=== PATIENT | female | born 1945 | race Caucasian/White ===

== ENCOUNTER 2019-05-18 10:16 | Outpatient (CLI) | payer MEDICARE, SELFPAY ==
[2019-05-18 11:31] LABS: Hematocrit 37.8 % (37.0-47.0); Hemoglobin 12.5 g/dL (11.5-15.3); Mean Corpuscular HGB Conc 33.1 g/dL (30.0-36.0); Mean Corpuscular Hemoglobin 28.6 pg (28.0-34.0); Mean Corpuscular Volume 86.5 fL (81-99); Mean Platelet Volume 10.8 fL (7.4-10.4); Platelet Count 194 10^3/cmm (130-400); Red Blood Count 4.37 10^6/uL (4.1-5.3); Red Cell Distribution Width 13.2 % (12.1-15.1); White Blood Count 7.5 10^3/uL (4.0-10.0)
[2019-05-18 11:50] LABS: Absolute Eosinophils 0.3 10^3/cmm (0.0-0.7); Absolute Segmented Neutrophil 5.1 10/cmm (1.6-7.1); Eosinophils 4 %; Lymphocytes 25 %; Monocytes Absolute 0.2 10^3/cmm (0.1-0.6); Segmented Neutrophils 68 %; Total Cells Counted 100 (0-100)
[2019-05-18 11:51] LABS: Platelet Estimate Normal (Normal)
[2019-05-18 11:52] LABS: Alanine Aminotransferase 46 U/L (0-33); Albumin Level 4.6 g/dL (3.5-5.2); Alkaline Phosphatase 60 IU/L (35-105); Anion Gap 15.8 (5-19); Aspartate Amino Transferase 54 U/L (0-32); Blood Urea Nitrogen 11 mg/dL (8-23); Calcium 9.7 mg/dL (8.5-10.5); Carbon Dioxide 28 mmol/L (22-29); Chloride 99 mmol/L (98-107); Globulin 3.1 g/dL (1.3-4.6); Glucose 123 mg/dL (65-115); Potassium 3.8 mmol/L (3.5-5.1); Sodium 139 mmol/L (136-145); Total Bilirubin 0.3 mg/dL (0.15-1.2); Total Protein 7.7 g/dL (6.6-8.7)
[2019-05-18 12:08] LABS: Erythrocyte Sedimentation Rate 29 mm/hr (0-15)
--- NOTE | 2019-05-19 16:22 | ONC FU_ITS ---
Dr. Pratt Patient Follow-Up Note Patient: Anika Gutierrez Unit #: [id number]: 1945 Dicatated By: Karri Pratt M.D.Date of Visit:May 18, 2019 Onc Med Follow-up/Prog Note Chief Complaint: Breast cancer. History of Present Illness: This is a 74 year-old woman with grade 1 infiltrating ductal carcinoma of the left breast, stage IA (T1b, N0, M0), ER/WI positive and HER-2/vipul nonamplified. She had presented with an abnormal screening mammogram on 11/24/2016, BI-RADS 0. Findings included a nodule in the left medial and slightly inferior anterior third breast. Left diagnostic mammogram and ultrasound on 12/15/2016 was BI-RADS 4A with suspicious appearing solid nodule at the 9:00 position of the left breast. It measured 5 x 6 x 6 mm by ultrasound. Ultrasound directed needle biopsy on 01/18/2017 showed grade 1 infiltrating ductal carcinoma. The breast prognostic profile showed ER positive at 70% and WI positive at 52%. The HER-2/vipul was nonamplified, 1+ by IHC and amplification ratio by FISH of 1.4 with 1.8 HER-2/vipul copies/cell. She underwent left breast lumpectomy with axillary sentinel lymph node biopsy on 02/02/2017. Pathology showed grade 1 infiltrating ductal carcinoma measuring 0.8 x 0.7 cm. There was DCIS within 2 mm of the inferior margin and within 4 mm of the posterior margin. The margins were free of infiltrating carcinoma. There was no involvement in 7 lymph nodes. She then had further evaluation with Oncotype DX. It showed a recurrence score of 32 corresponding to a 10 year risk of distant recurrence of 21% with adjuvant hormonal therapy alone. It was in the high risk range with estimated 30% benefit with addition of adjuvant chemotherapy. With those findings she was given chemotherapy with 4 cycles of cyclophosphamideTaxotere. Her treatment was complicated by neutropenia, requiring growth factor support beginning with cycle 2. She completed the 4th cycle on 05/24/2017. She was then given radiation to the left breast, which she completed on 08/23/2017 to a total dose of 6004 and 40 cGy. Adjuvant hormonal therapy with anastrozole 1 mg daily began in July 2017. Her baseline bone density was normal with T score -0.3 the lumbar spine, 0.7 in the left hip, and -0.9 in the right hip. Her other medical illnesses include hypertension, dyslipidemia, type II diabetes, GERD, degenerative arthritis, and chronic anxiety. She also has a history of superficial bladder cancer for which he has undergone TURBT and intravesical BCG therapy. She has a history of smoking 1 pack of cigarettes daily for 20 years. She quit smoking in 1982. INTERIM HISTORY: As of her follow-up visit in October 2017 she was having significant hot flashes. She otherwise appeared to be tolerating the anastrozole pretty well. I did have her continue treatment, but with addition of megestrol 20 mg twice a day for the hot flashes. However, she did end up stopping the anastrozole just after [place] due to worsening side effects, mainly severe hot flashes and extreme fatigue. She then started further adjuvant hormonal therapy with exemestane 25 mg daily in April 2018. Her surveillance mammogram on 05/12/2018 showed pleomorphic calcifications in the posterior, superior, and possibly lateral aspect of the right breast. These appeared suspicious on additional views. She underwent stereotactic needle biopsy on 07/14/2018. Pathology showed fibro-adenomatoid and fibrocystic changes. The specimen included several microcalcifications and coarse calcifications. There was no significant atypia or malignancy identified. CT scans of the chest, abdomen, and pelvis on 08/01/2018 showed stable findings in the chest with mild changes of pulmonary fibrosis/chronic interstitial lung disease. There was no enlargement of previously described nodules. There was evidence of hepatomegaly and hepatic steatosis. There was no evidence of metastatic disease. She continued adjuvant hormonal therapy with exemestane 25 mg daily. At her follow-up visit on 11/09/2018 she had complained of severe fatigue and increased musculoskeletal pain. She also described having difficulty maneuvering. Given the severity of her symptoms, I had recommended that she stop the exemestane. In December 2018 she began further adjuvant hormonal therapy with tamoxifen 20 mg daily. As of her follow-up visit on 03/20/2019 the tamoxifen was put on hold due to multiple complaints including headache, dysequilibrium, and fatigue, among others. She is seen for a follow-up visit. She is still not feeling good. She does not have good energy, though she is doing light work. ECOG score is 1. She has good appetite. She has not had fever. She complains that her hot flashes have come back, and when she has them she feels zapped. She continues to have headache on a daily basis. It is constant. She also continues to feel off center . A week ago her anxiety medication was changed, and she thinks she may be feeling a little bit better since then. She continues to have pain in her neck and shoulders and in her left knee. She complains of burning on the bottoms of her feet, and she complains that her hands go to sleep at night. Medications: AmLODIPine Besylate 1 Tablet (of 5 mg) Tablet Oral daily, Atorvastatin Calcium 1 Tablet (of 40 mg) Oral daily, B-6 1 (50 mg) Tablet Oral b.i.d., CeleXA 1 Tablet (of 20 mg) Oral daily, Flax Seed Oil 1 Capsule (of 1000 mg) Oral b.i.d., HydroCHLOROthiazide 1 Tablet (of 25 mg) Oral daily, Imodium A-D 1 Tablet (of 2 mg) Oral PRN, Lisinopril 1 (40 mg) Tablet Oral daily, MetFORMIN HCl 1 Tablet (of 850 mg) Oral b.i.d., Metoprolol Tartrate 1 Tablet (of 75 mg) Oral b.i.d., Naproxen 1 Tablet (of 500 mg) Tablet Oral PRN, PriLOSEC OTC 1 (20 mg) Tablet, enteric coated Oral daily, Vitamin B12 1 Tablet Oral daily, Vitamin D 1 (1000 Units) Tablet Oral daily Allergies: Iodine contrast dye and Percocet. Review of Systems: Constitutional - Her energy is not been good. She has limited activity. Her appetite has been okay. She has not had fever. She complains that her hot flashes have come back. She complains that when she has hot flashes they zap me . ECOG score is 1, ENMT - She complains that her nose drips. No mouth sores. No sore throat or difficulty swallowing, Hematologic/Lymphatic - No abnormal bruising or bleeding, Respiratory - No shortness of breath. She has nonproductive cough. No pleuritic pain or hemoptysis, Cardiovascular - No angina pain. No palpitations, Gastrointestinal - She still has a little bit of nausea, but it is getting better. Her acid reflux is managed adequately with Prilosec. No diarrhea or constipation. No blood in the stool or black stools, Genitourinary (F) - She has some difficulty voiding and her bladder aches if she does not drink and of water, Musculoskeletal - She has pain in her neck and shoulders and she has pain in her left knee, Integumentary - No skin complications, Neurologic - She has been having headache just about every day. It is constant. She feels off centered. She has no numbness/tingling, but she does complain that the bottoms of her feet burn. Her hands go to sleep at night, Psychiatric - She has anxiety, and her anxiety medication was recently changed. Vital Signs: Performed on May 18, 2019 10:28 Height - 63.00 in Weight - 194.6 lbs (HIGH) BSA - 1.91 sq.m BMI - 34.47 (HIGH) Temperature - 97.2 F (LOW) Pulse - 69 /min Respiration - 20 /min BP - 127/63 mm(hg) O2 Sat - 96 % Pain - 3 Physical Examination: Constitutional - She looks pretty good generally, Eyes - Sclerae nonicteric. Conjunctivae clear, ENMT - No lesions noted in the oral cavity, Hematologic/Lymphatic - No cervical, clavicular, or axillary adenopathy, Respiratory - Lungs are clear with good air movement bilaterally, Cardiovascular - Heart rhythm is regular. There is a II/ systolic murmur. There is no gallop or rub noted, Abdomen - Soft. Liver and spleen are not enlarged. There is no abdominal mass or ascites noted and there is no inguinal adenopathy, Extremities - Mild lower extremity edema with slight erythema, Neurologic - No focal neurologic deficits noted. Lab/Imaging: Test performed on May 18, 2019 11:15 Sodium 139 mmol/L Potassium 3.8 mmol/L Chloride 99 mmol/L CO2 28 mmol/L Anion Gap 15.8 BUN 11 mg/dL Creatinine 0.5 mg/dL Cr Clearance (Est) 132.8400 mL/min Glucose 123 mg/dL Calcium 9.7 mg/dL Protein, Total 7.7 g/dL Albumin 4.6 g/dL Globulin 3.1 g/dL Bilirubin, Total 0.3 mg/dL ALT (SGPT) 46 U/L AST (SGOT) 54 U/L Alkaline Phosphatase 60 IU/L ESR (Sed Rate) 29 mm/hr Test performed on Mar 07, 2019 12:16 BUN/Creatinine Ratio 28 Absolute Value A/G Ratio 1.7 Absolute Value Hemoglobin A1C 6.7 % WBC 7.7 10^9/L RBC 4.24 10^12/L HGB 12.5 g/dL HCT 37.3 % MCV 88 fl MCH 29.5 pg MCHC 33.5 g/dL RDW 13.1 % Platelet Count 178 10^9/L Neutrophils (Gran) 5.4978 10^9/L Lymphocytes 1.4938 10^9/L Monocytes 0.4697 10^9/L Eosinophils 0.1925 10^9/L Basophils 0.0462 10^9/L Impression: 1. Patient with grade 1 infiltrating ductal carcinoma of the left breast, stage IA (T1b, N0, M0), ER/WI positive and HER-2/vipul nonamplified. 2. She underwent left breast lumpectomy with axillary sentinel lymph node biopsy on 02/02/2017. She was found to be high risk by Oncotype DX with a recurrence score of 32. 3. She has history of superficial bladder cancer for which she has undergone TURBT and intravesical BCG. Her other medical illnesses include: 4. Hypertension. 5. Dyslipidemia. 6. Type II diabetes. 7. GERD. 8. Degenerative arthritis. 9. Chronic anxiety. Based on the high risk Oncotype DX score, I recommended adjuvant chemotherapy with cyclophosphamide/Taxotere. She completed 4 cycles of treatment from 03/22/2017 thru 05/24/2017. The treatment was complicated by moderately severe neutropenia and fatigue. Overall she tolerated it well. She then began radiation to the left breast on 07/06/2017. She completed treatment on 08/23/2017, total dose 6440 cGy. Adjuvant hormonal therapy with anastrozole 1 mg daily began on 07/11/2017. Her baseline bone density was normal with T score -0.3 the lumbar spine, but is 0.7 in the left hip, and -0.9 in the right hip. As of her follow-up visit in October 2017 she was complaining of hot flashes with the anastrozole, but she was otherwise tolerating it well. She continued treatment with addition of low-dose megestrol for the hot flashes. She opted to stop treatment in the latter part of March due to worsening side effects, which included more severe hot flashes, fatigue, and general inability to function. Her symptoms had subsequently improved, and in April 2018 she began further adjuvant hormonal therapy with exemestane 25 mg daily. She continued to have significant hot flashes and she also had some fatigue with the exemestane, but as of her follow-up visit in August 2018 she had been able to tolerate it with acceptable toxicity. However, as of her follow-up visit on 11/09/2018 the exemestane was put on hold due to increasing side effects including severe fatigue, musculoskeletal pain, and difficulty maneuvering. As of her follow-up visit on 12/13/2018 she was feeling better, and she then began further adjuvant hormonal therapy with tamoxifen 20 mg daily. At her follow-up visit on 03/20/2019 she had multiple complaints including fatigue, headache, and dysequilibrium, among others. Her tamoxifen was put on hold. At that time she also had stopped meloxicam. Thus far there really has not been any significant improvement in her clinical status. Plan: The tamoxifen will remain on hold. As a precaution I will now schedule her for a brain MRI. She will have further evaluation as indicated. Signed By: Karri Pratt M.D. <<Signature on File>>
== END 2019-05-18 10:17 | disposition home or self-care (01) ==
PROVIDERS: Family Provider Family Medicine; PCP Family Medicine; Visit Provider Internal Medicine Medical Oncology
DX: C50.312 Malignant neoplasm of lower-inner quadrant of left female breast (principal); R53.83 Other fatigue; R42 Dizziness and giddiness; R51 Headache; I10 Essential (primary) hypertension; E11.9 Type 2 diabetes mellitus without complications; E78.5 Hyperlipidemia, unspecified; K21.9 Gastro-esophageal reflux disease without esophagitis; M19.90 Unspecified osteoarthritis, unspecified site; F41.9 Anxiety disorder, unspecified; Z17.0 Estrogen receptor positive status [ER+]; Z92.21 Personal history of antineoplastic chemotherapy; Z85.51 Personal history of malignant neoplasm of bladder; Z79.84 Long term (current) use of oral hypoglycemic drugs; Z92.3 Personal history of irradiation; Z87.891 Personal history of nicotine dependence; Z92.23 Personal history of estrogen therapy
CPT/HCPCS: 36415; 80053; 85007; 85027; 85651; 99214

== ENCOUNTER 2019-05-21 09:22 | Outpatient (CLI) | payer MEDICARE, SELFPAY ==
--- NOTE | 2019-05-21 09:32 | MR_ITS ---
WS: [id number] MRI BRAIN WITH AND WITHOUT CONTRAST HISTORY: BREAST CANCER/HEADACHE COMPARISON: None available. TECHNIQUE: Multiplanar imaging performed through the brain with Prohance 17 ml's IV. No acute infarcts are seen. Cardoza-white matter differentiation is well preserved. There are a few scat tered T2 and FLAIR signal hyperintensities from chronic ischemic disease. No susceptibility artifacts or prior lacunar infarcts. Ventricles and extra-axial spaces are normal. Clivus and pituitary gland are normal. Visualized posterior fossa and brainstem are also normal. Postcontrast images are negative for masses or vascular malformations. Dural venous sinuses are normal. Paranasal sinuses: Greater than 50% opacification of the RIGHT maxillary sinus. Probably representing a mucous retention cyst. No bony expansion. No air-fluid levels. Mastoid air cells: Normal. Calvarium and scalp: Normal. MR/MR head wo/w con [id number] IMPRESSION: 1. No evidence for metastatic disease to the brain. 2. Minimal chronic microvascular ischemic disease. 3. RIGHT maxillary sinus mucous retention cyst.
== END 2019-05-21 09:23 | disposition home or self-care (01) ==
LOC: RADWPI 09:31
PROVIDERS: Family Provider Family Medicine; PCP Family Medicine; Visit Provider Internal Medicine Medical Oncology
DX: R51 Headache (principal); C50.919 Malignant neoplasm of unspecified site of unspecified female breast; M27.40 Unspecified cyst of jaw
CPT/HCPCS: 70553; A9579

== ENCOUNTER 2019-09-19 09:09 | Outpatient (CLI) | payer MEDICARE, SELFPAY ==
[2019-09-19 10:32] LABS: Basophils % 0.5 %; Eosinophils # 0.2 10^3/uL (0.0-0.8); Eosinophils % 3.2 %; Hematocrit 38.3 % (37.0-47.0); Hemoglobin 12.5 g/dL (11.5-15.3); Lymphocytes # 1.5 10^3/uL (0.8-4.8); Mean Corpuscular HGB Conc 32.6 g/dL (30.0-36.0); Mean Corpuscular Hemoglobin 29.3 pg (28.0-34.0); Mean Corpuscular Volume 89.9 fL (81-99); Mean Platelet Volume 11.4 fL (7.4-10.4); Monocytes # 0.4 10^3/uL (0.2-0.9); Monocytes % 6.8 %; Neutrophils # 4.1 10^3/uL (1.8-7.7); Neutrophils % 65.2 %; Nucleated Red Blood Cells % 0 %; Platelet Count 173 10^3/cmm (130-400); Red Blood Count 4.26 10^6/uL (4.1-5.3); Red Cell Distribution Width 13.3 % (12.1-15.1); White Blood Count 6.3 10^3/uL (4.0-10.0)
[2019-09-19 11:03] LABS: Alanine Aminotransferase 41 U/L (0-33); Albumin Level 4.2 g/dL (3.5-5.2); Alkaline Phosphatase 56 IU/L (35-105); Anion Gap 16.6 (5-19); Aspartate Amino Transferase 44 U/L (0-32); Blood Urea Nitrogen 14 mg/dL (8-23); Calcium 9.8 mg/dL (8.5-10.5); Carbon Dioxide 28 mmol/L (22-29); Chloride 98 mmol/L (98-107); Globulin 3.1 g/dL (1.3-4.6); Glucose 125 mg/dL (65-115); Osmolality Calculated 286 mOsm/kg (285-295); Potassium 3.6 mmol/L (3.5-5.1); Sodium 139 mmol/L (136-145); Thyroid Stimulating Hormone 2.49 uIU/mL (0.27-4.20); Total Bilirubin 0.3 mg/dL (0.15-1.2); Total Protein 7.3 g/dL (6.6-8.7)
[2019-09-19 11:11] LABS: Estmated Average Glucose 146; Hemoglobin A1C 6.7 % (4.0-6.0)
--- NOTE | 2019-09-19 17:12 | ONC FU_ITS ---
Dr. Pratt Patient Follow-Up Note Patient: Anika Gutierrez Unit #: [id number]: 1945 Dicatated By: Karri Pratt M.D.Date of Visit:Sep 19, 2019 Onc Med Follow-up/Prog Note Chief Complaint: Breast cancer. 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 She had presented with an abnormal screening mammogram on 11/24/2016, BI-RADS 0. Findings included a nodule in the left medial and slightly inferior anterior third breast. Left diagnostic mammogram and ultrasound on 12/15/2016 was BI-RADS 4A with suspicious appearing solid nodule at the 9:00 position of the left breast. It measured 5 x 6 x 6 mm by ultrasound. Ultrasound directed needle biopsy on 01/18/2017 showed grade 1 infiltrating ductal carcinoma. The breast prognostic profile showed ER positive at 70% and ME positive at 52%. The HER-2/vipul was nonamplified, 1+ by IHC and amplification ratio by FISH of 1.4 with 1.8 HER-2/vipul copies/cell. She underwent left breast lumpectomy with axillary sentinel lymph node biopsy on 02/02/2017. Pathology showed grade 1 infiltrating ductal carcinoma measuring 0.8 x 0.7 cm. There was DCIS within 2 mm of the inferior margin and within 4 mm of the posterior margin. The margins were free of infiltrating carcinoma. There was no involvement in 7 lymph nodes. She then had further evaluation with Oncotype DX. It showed a recurrence score of 32 corresponding to a 10 year risk of distant recurrence of 21% with adjuvant hormonal therapy alone. It was in the high risk range with estimated 30% benefit with addition of adjuvant chemotherapy. With those findings she was given chemotherapy with 4 cycles of cyclophosphamideTaxotere. Her treatment was complicated by neutropenia, requiring growth factor support beginning with cycle 2. She completed the 4th cycle on 05/24/2017. She was then given radiation to the left breast, which she completed on 08/23/2017 to a total dose of 6004 and 40 cGy. Adjuvant hormonal therapy with anastrozole 1 mg daily began in July 2017. Her baseline bone density was normal with T score -0.3 the lumbar spine, 0.7 in the left hip, and -0.9 in the right hip. Her other medical illnesses include hypertension, dyslipidemia, type II diabetes, GERD, degenerative arthritis, and chronic anxiety. She also has a history of superficial bladder cancer for which he has undergone TURBT and intravesical BCG therapy. She has a history of smoking 1 pack of cigarettes daily for 20 years. She quit smoking in 1982. INTERIM HISTORY: As of her follow-up visit in October 2017 she was having significant hot flashes. She otherwise appeared to be tolerating the anastrozole pretty well. I did have her continue treatment, but with addition of megestrol 20 mg twice a day for the hot flashes. However, she did end up stopping the anastrozole just after [place] due to worsening side effects, mainly severe hot flashes and extreme fatigue. She then started further adjuvant hormonal therapy with exemestane 25 mg daily in April 2018. Her surveillance mammogram on 05/12/2018 showed pleomorphic calcifications in the posterior, superior, and possibly lateral aspect of the right breast. These appeared suspicious on additional views. She underwent stereotactic needle biopsy on 07/14/2018. Pathology showed fibro-adenomatoid and fibrocystic changes. The specimen included several microcalcifications and coarse calcifications. There was no significant atypia or malignancy identified. CT scans of the chest, abdomen, and pelvis on 08/01/2018 showed stable findings in the chest with mild changes of pulmonary fibrosis/chronic interstitial lung disease. There was no enlargement of previously described nodules. There was evidence of hepatomegaly and hepatic steatosis. There was no evidence of metastatic disease. She continued adjuvant hormonal therapy with exemestane 25 mg daily. At her follow-up visit on 11/09/2018 she had complained of severe fatigue and increased musculoskeletal pain. She also described having difficulty maneuvering. Given the severity of her symptoms, I had recommended that she stop the exemestane. In December 2018 she began further adjuvant hormonal therapy with tamoxifen 20 mg daily. As of her follow-up visit on 03/20/2019 the tamoxifen was put on hold due to multiple complaints including headache, dysequilibrium, and fatigue, among others. Further evaluation with brain MRI on 05/21/2019 showed no evidence of metastatic disease. She then restarted tamoxifen, but she continued to have side effects, most significant of which was severe hot flashes. She is seen for a follow-up visit. She tried taking the tamoxifen off and on. She continued to have severe hot flashes with it, and she most recently stopped it again about 3 weeks ago. Since then she has stopped having actual hot flashes, but she continues to complain that sweat rolls off her continuously. Her energy is not good. She is able to do light work. ECOG score is 1. She has good appetite. Her weight is stable. She has not had fever. She continues to complain of shortness of breath. She has cough, but is mostly nonproductive. She does not complain of chest pain. She occasionally has a little nausea. Her acid reflux is adequately managed with Prilosec. Bowel function has been okay. She sometimes has pain with urination and dribbling, but that mainly occurs in the evening when she has not been drinking enough. She has had a recent follow-up with Dr. Winston, and her evaluation was unrevealing. She continues complain of having arthritis all over, but especially in her shoulders and her left knee. She still has some headaches, but they are better now than they had been. She has some numbness/tingling in her feet. Medications: AmLODIPine Besylate 1 Tablet (of 5 mg) Tablet Oral daily, Atorvastatin Calcium 1 Tablet (of 40 mg) Oral daily, B-6 1 (50 mg) Tablet Oral b.i.d., CeleXA 1 Tablet (of 20 mg) Oral daily, Flax Seed Oil 1 Capsule (of 1000 mg) Oral b.i.d., HydroCHLOROthiazide 1 Tablet (of 25 mg) Oral daily, Imodium A-D 1 Tablet (of 2 mg) Oral PRN, Lisinopril 1 (40 mg) Tablet Oral daily, MetFORMIN HCl 1 Tablet (of 850 mg) Oral b.i.d., Metoprolol Tartrate 1 Tablet (of 75 mg) Oral b.i.d., Naproxen 1 Tablet (of 500 mg) Tablet Oral PRN, PriLOSEC OTC 1 (20 mg) Tablet, enteric coated Oral daily, Vitamin B12 1 Tablet Oral daily, Vitamin D 1 (1000 Units) Tablet Oral daily Allergies: Iodine contrast dye and Percocet. Review of Systems: Constitutional - She generally does not feel good. She has no energy. Her appetite is good and weight is stable. No fevers. She is having persistent sweating. No current hot flashes but she was having constant hot flashes with the tamoxifen so she stopped taking it approximately 3 weeks ago. ECOG score is 1, ENMT - She has seasonal allergies. No mouth sores. She has an occasional sore throat. No difficulty swallowing, Hematologic/Lymphatic - No abnormal bruising or bleeding, Respiratory - She feels short of breath. She has an occasional dry cough. No pleuritic pain or hemoptysis, Cardiovascular - No angina pain. No palpitations, Gastrointestinal - No nausea or vomiting. She has acid reflux that is adequately managed with Prilosec. No diarrhea or constipation. No blood in the stool or black stools, Genitourinary (F) - She has had some dysuria and dribbling. It mainly occurs mostly in the evenings if she doesn't drink enough water. She has seen Dr. Winston about it. No hematuria. No urinary frequency. No urgency or incontinence. She has recently has symptoms of vaginal yeast infection, Musculoskeletal - She has arthirtis pain, especially in the shoulders and in the left knee, Integumentary - She has a skin rash under her breasts and in the groin area, Neurologic - She has occasional headaches. She feels dizzy. No numbness or tingling. No other focal neurologic symptoms, Psychiatric - She has some mild anxiety. No depression. No insomnia. Vital Signs: Performed on Sep 19, 2019 09:22 Height - 63.00 in Weight - 194.6 lbs BSA - 1.91 sq.m BMI - 34.47 (HIGH) Temperature - 98.2 F (LOW) Pulse - 63 /min Respiration - 22 /min BP - 134/68 mm(hg) O2 Sat - 96 % Pain - 0 Physical Examination: Constitutional - She looks pretty good generally, Eyes - Sclerae nonicteric. Conjunctivae clear, ENMT - No lesions noted in the oral cavity, Hematologic/Lymphatic - No cervical or clavicular adenopathy, Respiratory - Lungs are clear with good air movement bilaterally, Cardiovascular - Heart rhythm is regular. There is a II/ systolic murmur. There is no gallop or rub noted. There is mild jugular venous distention, Breasts - There is mild induraiton in the left breast. There are no breast masses noted. There is no axillary adenopathy noted, Abdomen - Soft. Liver and spleen are not enlarged. There is no abdominal mass or ascites noted and there is no inguinal adenopathy, Extremities - No edema. Dorsalis pedis pulses are palpable bilaterally, Integumentary - There is some mild intertriginous skin eruption below the breasts and in the groin area bilaterally, Neurologic - No focal neurologic deficits noted. Lab/Imaging: Test performed on Sep 19, 2019 10:15 Sodium 139 mmol/L TSH 2.49 uIU/mL Potassium 3.6 mmol/L Chloride 98 mmol/L CO2 28 mmol/L Anion Gap 16.6 BUN 14 mg/dL Creatinine 0.5 mg/dL Cr Clearance (Est) 132.8400 mL/min Glucose 125 mg/dL Calcium 9.8 mg/dL Protein, Total 7.3 g/dL Albumin 4.2 g/dL Globulin 3.1 g/dL Bilirubin, Total 0.3 mg/dL ALT (SGPT) 41 U/L AST (SGOT) 44 U/L Alkaline Phosphatase 56 IU/L Hemoglobin A1C % 6.7 % WBC 6.3 10 3/uL RBC 4.26 10 6/uL HGB 12.5 g/dL HCT 38.3 % MCV 89.9 fL MCH 29.3 pg MCHC 32.6 g/dL RDW 13.3 % Platelet Count 173 10 3/cmm MPV 11.4 fL Neutrophils 4.1 10 3/uL Lymphocytes 1.5 10 3/uL Monocytes 0.4 10 3/uL Eosinophils 0.2 10 3/uL Basophils 0.0 10 3/uL Neutrophil % 65.2 % Lymphocyte % 24.0 % Monocyte % 6.8 % Eosinophil % 3.2 % Basophils % 0.5 % NRBC % 0 % Impression: 1. Patient with grade 1 infiltrating ductal carcinoma of the left breast, stage IA (T1b, N0, M0), ER/ME positive and HER-2/vipul nonamplified. 2. She underwent left breast lumpectomy with axillary sentinel lymph node biopsy on 02/02/2017. She was found to be high risk by Oncotype DX with a recurrence score of 32. 3. She has history of superficial bladder cancer for which she has undergone TURBT and intravesical BCG. Her other medical illnesses include: 4. Hypertension. 5. Dyslipidemia. 6. Type II diabetes. 7. GERD. 8. Degenerative arthritis. 9. Chronic anxiety. Based on the high risk Oncotype DX score, I recommended adjuvant chemotherapy with cyclophosphamide/Taxotere. She completed 4 cycles of treatment from 03/22/2017 thru 05/24/2017. The treatment was complicated by moderately severe neutropenia and fatigue. Overall she tolerated it well. She then began radiation to the left breast on 07/06/2017. She completed treatment on 08/23/2017, total dose 6440 cGy. Adjuvant hormonal therapy with anastrozole 1 mg daily began on 07/11/2017. Her baseline bone density was normal with T score -0.3 the lumbar spine, but is 0.7 in the left hip, and -0.9 in the right hip. As of her follow-up visit in October 2017 she was complaining of hot flashes with the anastrozole, but she was otherwise tolerating it well. She continued treatment with addition of low-dose megestrol for the hot flashes. She opted to stop treatment in the latter part of March due to worsening side effects, which included more severe hot flashes, fatigue, and general inability to function. Her symptoms had subsequently improved, and in April 2018 she began further adjuvant hormonal therapy with exemestane 25 mg daily. She continued to have significant hot flashes and she also had some fatigue with the exemestane, but as of her follow-up visit in August 2018 she had been able to tolerate it with acceptable toxicity. However, as of her follow-up visit on 11/09/2018 the exemestane was put on hold due to increasing side effects including severe fatigue, musculoskeletal pain, and difficulty maneuvering. As of her follow-up visit on 12/13/2018 she was feeling better, and she then began further adjuvant hormonal therapy with tamoxifen 20 mg daily. At her follow-up visit on 03/20/2019 she had multiple complaints including fatigue, headache, and dysequilibrium, among others. Her tamoxifen was put on hold. At that time she also had stopped meloxicam. She had subsequently tried restarting the tamoxifen, but she continued to have multiple side effects, and the most significant of which was severe hot flashes. She has had ongoing complaints of fatigue and shortness of breath since completing adjuvant chemotherapy, and she has had very poor tolerance for multiple adjuvant hormonal therapies, including anastrozole, exemestane, and tamoxifen. There has been no evidence, though, of recurrence of the breast cancer. Plan: She will continue on observation/expectant management for the breast cancer. She will be given fluconazole for yeast infection, and I also gave her prescription for nystatin powder. She will be scheduled for her surveillance mammograms, which are overdue. I will see her again in 6 months, or sooner as needed. Signed By: Karri Pratt M.D. <<Signature on File>>
== END 2019-09-19 09:10 | disposition home or self-care (01) ==
PROVIDERS: PCP Family Medicine; Visit Provider Internal Medicine Medical Oncology
DX: Z08 Encounter for follow-up examination after completed treatment for malignant neoplasm (principal); Z85.3 Personal history of malignant neoplasm of breast; B37.9 Candidiasis, unspecified; Z92.23 Personal history of estrogen therapy; Z92.21 Personal history of antineoplastic chemotherapy; I10 Essential (primary) hypertension; E78.5 Hyperlipidemia, unspecified; E11.9 Type 2 diabetes mellitus without complications; K21.9 Gastro-esophageal reflux disease without esophagitis; M19.90 Unspecified osteoarthritis, unspecified site; F41.9 Anxiety disorder, unspecified; Z79.84 Long term (current) use of oral hypoglycemic drugs
CPT/HCPCS: 80053; 83036; 84443; 85025; 99214

== ENCOUNTER 2019-09-21 10:40 | Outpatient (CLI) | payer MEDICARE, SELFPAY ==
--- NOTE | 2019-09-21 11:07 | CT_ITS ---
WS: [id number] CT CHEST TECHNIQUE: Noncontrast CT of the chest with coronal and sagittal reformatted images. CLINICAL INFORMATION: BREAST CANCER, PULMONARY NODULES COMPARISON: CT chest August 01, 2018 DLP: 842.[address] scans at [facility] use at least one of these dose optimization techniques: automat ed exposure control; mA and/or kV adjustment per patient size (includes targeted exams where dose is matched to clinical indication); or iterative reconstruction. FINDINGS: Again seen are multiple subcentimeter noncalcified pulmonary nodules which are unchanged from previou s. No new suspicious pulmonary opacities. A few bilateral subpleural pulmonary nodules. Fibrotic appe aring opacity in the right lower lobe anteriorly along the diaphragm more prominent today measuring 6 mm. Stable interstitial thickening left upper lobe is unchanged. No new infiltrates. No pleural fluid. Mi ld chronic emphysematous changes. No mediastinal or hilar lymphadenopathy. Small esophageal hiatal hernia. Moderate thoracic kyphosis. Aortic and coronary calcification. Diffuse fatty infiltration the liver. A few small stable hepatic c ysts. Adrenal glands are normal. Prior cholecystectomy. CT/CT chest wo con [id number] IMPRESSION: 1. Stable mild chronic emphysematous change. Stable interstitial thickening in the left upper lobe. 2. Multiple noncalcified subcentimeter pulmonary nodules are unchanged. 3. Fibrotic appearing opacity in the right lower lobe anteriorly along the giselle phragm more prominent today measuring 6 mm. Recommend 6 month follow-up. 4. Diffuse fatty infiltration of the liver. A few stable hepatic cysts. 5. No mediastinal or hilar lymphadenopathy.
== END 2019-09-21 10:41 | disposition home or self-care (01) ==
LOC: RADWPI 10:43
PROVIDERS: PCP Family Medicine; Visit Provider Internal Medicine Medical Oncology
DX: C50.919 Malignant neoplasm of unspecified site of unspecified female breast (principal); R91.8 Other nonspecific abnormal finding of lung field; K76.0 Fatty (change of) liver, not elsewhere classified; K76.89 Other specified diseases of liver
CPT/HCPCS: 71250

== ENCOUNTER 2019-10-09 09:06 | Outpatient (CLI) | payer MEDICARE, SELFPAY ==
--- NOTE | 2019-10-09 09:11 | MM_ITS ---
WS: [id number] DIAGNOSTIC BILATERAL DIGITAL MAMMOGRAM WITH CAD HISTORY: HX OF BREAST CA COMPARISON: 07/14/2018, 05/22/2018, 05/12/2018 and 12/15/2016 TECHNIQUE: Bilateral craniocaudad, mediolateral oblique, and mediolateral views are submitted. Spot c ompression RIGHT CC and MLO. Computer aided detection utilized. Breast composition: The breasts are heterogeneously dense, which may obscure small masses. Postsurgic al scar and thickening noted in the anterior LEFT breast. Benign calcifications in the LEFT breast. N umerous calcifications in the RIGHT breast. There is a biopsy clip in the upper outer quadrant with s ome residual calcifications but no progression. Benign biopsy. MM/[place] [id number] IMPRESSION: BI-RADS: 2-Benign FOLLOW UP: 1 Year Follow-up
== END 2019-10-09 09:07 | disposition home or self-care (01) ==
LOC: RADSHAW 09:10
PROVIDERS: PCP Family Medicine; Visit Provider Internal Medicine Medical Oncology
DX: Z85.3 Personal history of malignant neoplasm of breast (principal)
CPT/HCPCS: 77066

== ENCOUNTER 2020-02-06 12:24 | Emergency (ER) | payer MEDICARE, SELFPAY ==
[2020-02-06 12:29] VITALS: BP 144/72; PULSE 68; RESP 18; TEMP 36.1; O2SAT 95; BMI 32.8
[2020-02-06 12:45] VITALS: BP 111/83; PULSE 68; RESP 18; O2SAT 95
--- NOTE | 2020-02-06 12:51 | CT_ITS ---
WS: [id number] CT HEAD NONCONTRAST HISTORY: fall, head CT TECHNIQUE: Contiguous axial imaging performed through the brain in 2.5 mm imaging. Bone and soft tiss ue windows. Sagittal and coronal reformats reviewed. All CT scans at [facility] use at ast one of these dose optimization techniques: automated exposure control; mA and/or kV adjustment pe r patient size (includes targeted exams where dose is matched to clinical indication); or iterative r econstruction. DLP: 747.43 mGy.cm COMPARISON: 05/21/2019 No acute intracranial hemorrhage, midline shift or mass effect. Mild atrophy and mild chronic microvascular ischemic disease. No prior infarct. Ventricles: Normal size with no hydrocephalus. Paranasal sinuses: As visualized are clear. Mastoid air cells: Well pneumatized. Calvarium and scalp: Hyperostosis frontalis interna. No skull fracture is identified. There is a mode rate amount of scalp edema and hematoma centered over the LEFT frontal region. CT/CT head wo con* [id number] IMPRESSION: 1. No acute intracranial hemorrhage or edema. 2. Moderate-sized LEFT frontal scalp hematoma. 3. No fracture.
--- NOTE | 2020-02-06 12:51 | W.ED.FALL ---
HPI - Fall General: Chief Complaint: Fall Stated Complaint: Fall Time Seen by Provider: 02/06/20 12:38 Source: patient and family (son) Mode of arrival: ambulatory Limitations: no limitations History of Present Illness: HPI Narrative: Patient was coming to the hospital to see her who just had surgery, and when she got out of the car she lost balance and fell landing on her head. She denies loss of consciousness before or after the fall. She denies chest pain, dizziness, headache, shortness of breath. She is setting that she did not lose consciousness but is uncertain how she fell. Her son drove her and he said when she got out of the car she leaned forward and just kept going until she hit her head on the pavement. She is not on anticoagulation but takes aspirin daily. She has bad knees and says if she steps on her left lower extremity first it does not hold her weight. complaint: fall Onset (ago): minute(s) Fall from: other (getting out the car) Fall witnessed: yes, by family Place fall occurred: street Loss of consciousness: None Prolonged down time: no Symptoms prior to fall: none Location of injury: head Associated symptoms-after fall: Denies abdominal pain, headache(s) or neck pain Review of Systems General: Reports: 10 or more systems reviewed and unremarkable except in HPI and below Const: Denies: fever(s), chills or body aches Eyes: Denies: change in vision or blurry vision ENMT: Denies: throat pain, enlarged tonsils, odynophagia, hoarseness, mouth pain or swelling of lips/tongue Card: Denies: palpitations, irregular heart rhythm, edema or swelling of feet/ankles Resp: Denies: dyspnea, productive cough or non-productive cough GI: Denies: abdominal pain, nausea or vomiting : Denies: flank pain, difficulty voiding, dysuria, urinary frequency, urinary urgency or urinary hesitancy Musc: Denies: neck pain, back pain or extremity swelling Skin/Breast: Denies: rash, pruritus or erythema Neuro: Denies: headache(s), numbness in extremities or weakness in extremities Endo: Denies: polyuria, polydipsia or tired all the time Physical Exam Const: COMMON NORMALS: no acute distress, average body habitus, patient oriented x3, no limitations, healthy appearing, alert and well nourished HENMT: COMMON NORMALS: normocephalic and moist oral mucous membranes HEAD & SCALP: normocephalic and abrasion (left forehead, with a 2cm swelling. Also has abrasions on her nose) Eye: COMMON NORMALS: Equal, round and reactive pupils present, EOMs intact bilaterally, conjunctivae normal and no scleral icterus CONJUNCTIVA: Yes conjunctivae normal PUPIL: Yes Equal, round and reactive pupils present Neck/C-Spine: COMMON NORMALS: full ROM, supple, no meningeal signs, no JVD and No carotid bruits Chest: COMMONS NORMALS: normal inspection of the chest and normal palpation of entire chest wall Resp: COMMON NORMALS: normal respiratory effort, No retractions, No use of accessory muscles, clear to auscultation bilaterally and percussion normal AUSCULTATION: clear to auscultation bilaterally PERCUSSION: percussion normal Cardio: COMMON NORMALS: no JVD, regular rate, regular rhythm, S1 normal heart sound present, S2 normal heart sound present, No gallops present (Cardio), No clicks present (Cardio), No murmurs present (Cardio), No rub (Cardio) and Peripheral pulses 2+ throughout RATE: regular rate RHYTHM: regular rhythm HEART SOUNDS: S1 normal heart sound present and S2 normal heart sound present PERIPHERAL PULSES: Peripheral pulses 2+ throughout GI: COMMON NORMALS: Normal to inspection, nondistended, normoactive bowel sounds present, Soft to palpation, non-tender, No hepatosplenomegaly present, no masses and no bruits PALPATION: Yes Soft to palpation and Yes No hepatosplenomegaly present Extremity: COMMON NORMALS: normal to inspection, full ROM, capillary refill normal, no calf tenderness and no pedal edema Neuro: COMMON NORMALS: patient oriented x3 SENSORIUM/ORIENTATION: Yes alert MENINGEAL SIGNS: Yes no meningeal signs Skin: COMMON NORMALS: no rashes or lesions noted, no wounds, turgor normal, no jaundice, no petechiae and no mottling GENERAL SKIN EXAM: no rashes or lesions noted and turgor normal Course Reevaluation(s): Reevaluation #1: Discussed her imaging findings with her. Negative head CT. We will discharge her home with conservative measures, ice Tylenol and ibuprofen. She voiced understanding and is in agreement with the plan Time: 14:21 Vital Signs: Vital signs: Vital Signs Temperature 98.7 F 02/06/20 14:32 Pulse Rate 65 02/06/20 14:32 Respiratory Rate 20 H 02/06/20 14:32 Blood Pressure 121/62 02/06/20 14:32 Pulse Oximetry 95 02/06/20 12:45 MDM - Fall MDM Narrative: Medical decision making narrative: 74-year-old female who had a mechanical fall with a mild head injury. Head CT done was negative for acute findings. She is discharged home on conservative measures. Imaging Data^: CT Head: Attestation: I personally reviewed and interpreted this imaging study as follows: Radiologist's impression: [address] [place] [address] CT Scan Report Signed Patient: nAika Gutierrez #: [id number] : 3Acct#:[id number] Age/Sex: 74 / FADM Date: 02/06/20 Loc: ERRoom/Bed: Attending Dr: Ordering Provider/Ordering MD: Carina Steele [place] [facility] [place] of Service: 02/06/20 Procedure(s): CT head wo con* [id number] Accession Number(s): [id number] Report Number: [id number] WS: [id number] CT HEAD NONCONTRAST HISTORY: fall, head CT TECHNIQUE: Contiguous axial imaging performed through the brain in 2.5 mm imaging. Bone and soft tissue windows. Sagittal and coronal reformats reviewed. All CT scans at [facility] use at least one of these dose optimization techniques: automated exposure control; mA and/or kV adjustment per patient size (includes targeted exams where dose is matched to clinical indication); or iterative reconstruction. DLP: 747.43 mGy.cm COMPARISON: 05/21/2019 No acute intracranial hemorrhage, midline shift or mass effect. Mild atrophy and mild chronic microvascular ischemic disease. No prior infarct. Ventricles: Normal size with no hydrocephalus. Paranasal sinuses: As visualized are clear. Mastoid air cells: Well pneumatized. Calvarium and scalp: Hyperostosis frontalis interna. No skull fracture is identified. There is a moderate amount of scalp edema and hematoma centered over the LEFT frontal region. CT/CT head wo con* [id number] IMPRESSION: 1. No acute intracranial hemorrhage or edema. 2. Moderate-sized LEFT frontal scalp hematoma. 3. No fracture. Dictated By:Patti Petit DO Signed By:Patti Petit DOSigned Date/Time:02/06/201318 DD/ 16 Discharge Plan Discharge Patient Disposition: Home Clinical Impression: Traumatic hematoma of forehead Qualifiers: Encounter type: initial encounter Qualified Code(s): S00.83XA - Contusion of other part of head, initial encounter Fall Qualifiers: Encounter type: initial encounter Qualified Code(s): W19.XXXA - Unspecified fall, initial encounter Mild closed head injury Qualifiers: Encounter type: initial encounter Qualified Code(s): S09.90XA - Unspecified injury of head, initial encounter Condition: Stable Prescriptions: Continued multivitamin Tablet 1 tab PO DAILY RF: 0 atorvastatin 10 mg tablet 10 mg PO DAILY RF: 0 aspirin 325 mg Tablet 325 mg PO DAILY RF: 0 metformin 850 mg tablet 850 mg PO BID RF: 0 flaxseed oil 1,000 mg Capsule 1,000 mg PO DAILY RF: 0 citalopram 20 mg tablet 20 mg PO DAILY RF: 0 amlodipine 10 mg tablet 10 mg PO DAILY RF: 0 metoprolol tartrate 50 mg tablet 50 mg PO BID RF: 0 omeprazole 20 mg Capsule,Delayed Release(Dr/Ec) 20 mg PO DAILY RF: 0 hydrochlorothiazide 25 mg tablet 25 mg PO DAILY RF: 0 lisinopril 40 mg tablet 40 mg PO DAILY RF: 0 Vitamin D3 125 mcg (5,000 unit) Tablet 125 mcg PO DAILY RF: 0 Fish Oil 1,000 mg (120 mg-180 mg) Capsule 1 cap PO DAILY RF: 0 Azo Cranberry 250 mg Tablet,Chewable 250 mg PO DAILY RF: 0 Discharge Orders: Discharge Order (Routine); Ordered 02/06/20 Ordered By: Carina Steele Referrals: Pascual Avelar MD [Primary Care Provider] - 1-3 days Discharge Diet: Usual diet Discharge Activity: Increase activity as tolerated Patient Instructions: Minor Head Injury (ED), Contusion in Adults (ED), Fall Prevention (ED) Activity Restrictions/Additional Instructions: Return for any new or worsening symptoms. Apply ice to the forehead swelling for 15 minutes at a time as often as you can. Take Tylenol or ibuprofen as needed for pain. Discharge Date/Time: 02/06/20 14:34 Coding Level of Care Code ED Sales Development Associate for [employer] Fwd Exam Comprehensive
--- NOTE | 2020-02-06 13:57 | PC.NURSE ---
No Acute distress, continue to monitor.
[2020-02-06 14:32] VITALS: BP 121/62; PULSE 65; RESP 20; TEMP 37.1
== END 2020-02-06 14:34 | disposition home or self-care (01) ==
PROVIDERS: Emergency Provider Family Medicine; PCP Family Medicine
DX: S00.83XA Contusion of other part of head, initial encounter (principal); S09.8XXA Other specified injuries of head, initial encounter; Z79.82 Long term (current) use of aspirin; Z79.84 Long term (current) use of oral hypoglycemic drugs; W01.0XXA Fall on same level from slipping, tripping and stumbling without subsequent striking against object, initial encounter; Y92.481 Parking lot as the place of occurrence of the external cause
CPT/HCPCS: 12345; 70450; 99281; 99282

== ENCOUNTER 2020-03-20 13:51 | Outpatient (CLI) | payer MEDICARE, SELFPAY ==
[2020-03-20 14:47] LABS: Basophils # 0.1 10^3/uL (0.0-0.1); Basophils % 0.7 %; Eosinophils # 0.4 10^3/uL (0.0-0.8); Eosinophils % 4.5 %; Hematocrit 37.4 % (37.0-47.0); Lymphocytes % 24.2 %; Mean Corpuscular HGB Conc 32.1 g/dL (30.0-36.0); Mean Corpuscular Hemoglobin 28.8 pg (28.0-34.0); Mean Corpuscular Volume 89.7 fL (81-99); Mean Platelet Volume 11.6 fL (7.4-10.4); Monocytes # 0.5 10^3/uL (0.2-0.9); Monocytes % 6.5 %; Neutrophils # 5.34 10^3/uL (1.8-7.7); Neutrophils % 63.9 %; Nucleated Red Blood Cells % 0 %; Platelet Count 221 10^3/cmm (130-400); Red Blood Count 4.17 10^6/uL (4.1-5.3); Red Cell Distribution Width 13.2 % (12.1-15.1); White Blood Count 8.4 10^3/uL (4.0-10.0)
[2020-03-20 15:01] LABS: Alanine Aminotransferase 28 U/L (0-33); Albumin Level 4.3 g/dL (3.5-5.2); Alkaline Phosphatase 68 IU/L (35-105); Anion Gap 14.6 (5-19); Aspartate Amino Transferase 27 U/L (0-32); Blood Urea Nitrogen 19 mg/dL (8-23); Calcium 9.4 mg/dL (8.5-10.5); Carbon Dioxide 28 mmol/L (22-29); Chloride 98 mmol/L (98-107); Globulin 2.9 g/dL (1.3-4.6); Glucose 72 mg/dL (65-115); Osmolality Calculated 285 mOsm/kg (285-295); Potassium 3.6 mmol/L (3.5-5.1); Sodium 137 mmol/L (136-145); Total Bilirubin 0.2 mg/dL (0.15-1.2); Total Protein 7.2 g/dL (6.6-8.7)
[2020-03-20 15:52] LABS: Estmated Average Glucose 131; Hemoglobin A1C 6.2 % (4.0-6.0)
--- NOTE | 2020-03-22 15:40 | ONC FU_ITS ---
Dr. Pratt Patient Follow-Up Note Patient: Anika Gutierrez Unit #: [id number]: [id number] Dicatated By: Karri Pratt M.D.Date of Visit:Mar 20, 2020 Onc Med Follow-up/Prog Note Chief Complaint: Breast cancer. 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 She had presented with an abnormal screening mammogram on 11/24/2016, BI-RADS 0. Findings included a nodule in the left medial and slightly inferior anterior third breast. Left diagnostic mammogram and ultrasound on 12/15/2016 was BI-RADS 4A with suspicious appearing solid nodule at the 9:00 position of the left breast. It measured 5 x 6 x 6 mm by ultrasound. Ultrasound directed needle biopsy on 01/18/2017 showed grade 1 infiltrating ductal carcinoma. The breast prognostic profile showed ER positive at 70% and KY positive at 52%. The HER-2/vipul was nonamplified, 1+ by IHC and amplification ratio by FISH of 1.4 with 1.8 HER-2/vipul copies/cell. She underwent left breast lumpectomy with axillary sentinel lymph node biopsy on 02/02/2017. Pathology showed grade 1 infiltrating ductal carcinoma measuring 0.8 x 0.7 cm. There was DCIS within 2 mm of the inferior margin and within 4 mm of the posterior margin. The margins were free of infiltrating carcinoma. There was no involvement in 7 lymph nodes. She then had further evaluation with Oncotype DX. It showed a recurrence score of 32 corresponding to a 10 year risk of distant recurrence of 21% with adjuvant hormonal therapy alone. It was in the high risk range with estimated 30% benefit with addition of adjuvant chemotherapy. With those findings she was given chemotherapy with 4 cycles of cyclophosphamideTaxotere. Her treatment was complicated by neutropenia, requiring growth factor support beginning with cycle 2. She completed the 4th cycle on 05/24/2017. She was then given radiation to the left breast, which she completed on 08/23/2017 to a total dose of 6004 and 40 cGy. Adjuvant hormonal therapy with anastrozole 1 mg daily began in July 2017. Her baseline bone density was normal with T score -0.3 the lumbar spine, 0.7 in the left hip, and -0.9 in the right hip. Her other medical illnesses include hypertension, dyslipidemia, type II diabetes, GERD, degenerative arthritis, and chronic anxiety. She also has a history of superficial bladder cancer for which he has undergone TURBT and intravesical BCG therapy. She has a history of smoking 1 pack of cigarettes daily for 20 years. She quit smoking in 1982. INTERIM HISTORY: As of her follow-up visit in October 2017 she was having significant hot flashes. She otherwise appeared to be tolerating the anastrozole pretty well. I did have her continue treatment, but with addition of megestrol 20 mg twice a day for the hot flashes. However, she did end up stopping the anastrozole just after [place] due to worsening side effects, mainly severe hot flashes and extreme fatigue. She then started further adjuvant hormonal therapy with exemestane 25 mg daily in April 2018. Her surveillance mammogram on 05/12/2018 showed pleomorphic calcifications in the posterior, superior, and possibly lateral aspect of the right breast. These appeared suspicious on additional views. She underwent stereotactic needle biopsy on 07/14/2018. Pathology showed fibro-adenomatoid and fibrocystic changes. The specimen included several microcalcifications and coarse calcifications. There was no significant atypia or malignancy identified. CT scans of the chest, abdomen, and pelvis on 08/01/2018 showed stable findings in the chest with mild changes of pulmonary fibrosis/chronic interstitial lung disease. There was no enlargement of previously described nodules. There was evidence of hepatomegaly and hepatic steatosis. There was no evidence of metastatic disease. She continued adjuvant hormonal therapy with exemestane 25 mg daily. At her follow-up visit on 11/09/2018 she had complained of severe fatigue and increased musculoskeletal pain. She also described having difficulty maneuvering. Given the severity of her symptoms, I had recommended that she stop the exemestane. In December 2018 she began further adjuvant hormonal therapy with tamoxifen 20 mg daily. As of her follow-up visit on 03/20/2019 the tamoxifen was put on hold due to multiple complaints including headache, dysequilibrium, and fatigue, among others. Further evaluation with brain MRI on 05/21/2019 showed no evidence of metastatic disease. She then restarted tamoxifen, but she continued to have side effects, and she did stop taking it again. She was then followed on observation/expectant management. She is seen for a follow-up visit. She has been feeling pretty good generally. She says her energy lately has been a little better. She still has limited activity. Her ECOG score is 1. Her appetite is good. She has not had fever or night sweats. She says the hot flashes are much better and she now has them just occasionally. She does report that her tongue is been sensitive. She has a little bit of cough. She is short of breath at times. She does not complain of chest pain. She has no GI complaints. She has continued to have bladder spasms and she is seeing a urologist. She also complains of having yeast infection. She has joint pain, particularly in the left knee and in both shoulders, right worse than left. She does not complain of headache. She does have difficulty with balance. She still has numbness in her hands, left worse than right, but her feet are better now. Medications: AmLODIPine Besylate 1 Tablet (of 5 mg) Tablet Oral daily, Atorvastatin Calcium 1 Tablet (of 40 mg) Oral daily, B-6 1 (50 mg) Tablet Oral b.i.d., CeleXA 1 Tablet (of 20 mg) Oral daily, Flax Seed Oil 1 Capsule (of 1000 mg) Oral b.i.d., HydroCHLOROthiazide 1 Tablet (of 25 mg) Oral daily, Imodium A-D 1 Tablet (of 2 mg) Oral PRN, Lisinopril 1 (40 mg) Tablet Oral daily, MetFORMIN HCl 1 Tablet (of 850 mg) Oral b.i.d., Metoprolol Tartrate 1 Tablet (of 75 mg) Oral b.i.d., Naproxen 1 Tablet (of 500 mg) Tablet Oral PRN, PriLOSEC OTC 1 (20 mg) Tablet, enteric coated Oral daily, Vitamin B12 1 Tablet Oral daily, Vitamin D 1 (1000 Units) Tablet Oral daily Allergies: Iodine contrast dye and Percocet. Review of Systems: Constitutional - Her energy is a little better, but she still has limited activity. Her appetite is good. She has lost a little weight. She does not have fever or night sweats. She has had significant improvement in her hot flashes, which she now has just occasionally. ECOG score is 1, ENMT - She has sinus drainage and she also complains that her tongue has been sensitive. No sore throat or difficulty swallowing, Hematologic/Lymphatic - No abnormal bruising or bleeding, Respiratory - She has shortness of breath. She has a little bit of cough. No pleuritic pain or hemoptysis, Cardiovascular - No angina pain. No palpitations, Gastrointestinal - No nausea or vomiting. She has some acid reflux. No diarrhea or constipation. No blood in the stool or black stools, Genitourinary (F) - She has intermittent bladder spasms and she also complains of having yeast infection, Musculoskeletal - She has pain in her knees and shoulders, Integumentary - No skin rash, Neurologic - No headache or dizziness. She has poor balance. She still has some numbness in her hands, left worse than right. She says her feet are better, Psychiatric - She has anxiety/depression. No insomnia. Vital Signs: Weight is 170 lbs. Blood pressure 124/53, pulse 64, respirations 20, temperature 97.9 degrees, oxygen saturation 96%. Physical Examination: Constitutional - She looks pretty good generally, Eyes - Sclerae nonicteric. Conjunctivae clear, ENMT - No lesions noted in the oral cavity, Hematologic/Lymphatic - No cervical, clavicular, or axillary adenopathy, Respiratory - Lungs are clear with good air movement bilaterally, Cardiovascular - Heart rhythm is regular. There is a II/ systolic murmur. There is no gallop or rub noted, Abdomen - Soft. Liver and spleen are not enlarged. There is no abdominal mass or ascites noted and there is no inguinal adenopathy, Extremities - No edema, Neurologic - No focal neurologic deficits noted. Lab/Imaging: Test performed on Mar 20, 2020 14:08 Sodium 137 mmol/L Potassium 3.6 mmol/L Chloride 98 mmol/L Est Avg Glucose (eAG) 131 mg/dL CO2 28 mmol/L Anion Gap 14.6 BUN 19 mg/dL Creatinine 0.7 mg/dL Cr Clearance (Est) 93.4000 mL/min Glucose 72 mg/dL Osmolality - Calculated 285 mOsm/kg Calcium 9.4 mg/dL Protein, Total 7.2 g/dL Albumin 4.3 g/dL Globulin 2.9 g/dL Bilirubin, Total 0.2 mg/dL ALT (SGPT) 28 U/L AST (SGOT) 27 U/L Alkaline Phosphatase 68 IU/L Hemoglobin A1C % 6.2 % WBC 8.4 10 3/uL RBC 4.17 10 6/uL HGB 12.0 g/dL HCT 37.4 % MCV 89.7 fL MCH 28.8 pg MCHC 32.1 g/dL RDW 13.2 % Platelet Count 221 10 3/cmm MPV 11.6 fL Neutrophils 5.34 10 3/uL Lymphocytes 2.0 10 3/uL Monocytes 0.5 10 3/uL Eosinophils 0.4 10 3/uL Basophils 0.1 10 3/uL Neutrophil % 63.9 % Lymphocyte % 24.2 % Monocyte % 6.5 % Eosinophil % 4.5 % Basophils % 0.7 % NRBC % 0 % Impression: 1. Patient with grade 1 infiltrating ductal carcinoma of the left breast, stage IA (T1b, N0, M0), ER/KY positive and HER-2/vipul nonamplified. 2. She underwent left breast lumpectomy with axillary sentinel lymph node biopsy on 02/02/2017. She was found to be high risk by Oncotype DX with a recurrence score of 32. 3. She has history of superficial bladder cancer for which she has undergone TURBT and intravesical BCG. Her other medical illnesses include: 4. Hypertension. 5. Dyslipidemia. 6. Type II diabetes. 7. GERD. 8. Degenerative arthritis. 9. Chronic anxiety. Based on the high risk Oncotype DX score, I recommended adjuvant chemotherapy with cyclophosphamide/Taxotere. She completed 4 cycles of treatment from 03/22/2017 thru 05/24/2017. The treatment was complicated by moderately severe neutropenia and fatigue. Overall she tolerated it well. She then began radiation to the left breast on 07/06/2017. She completed treatment on 08/23/2017, total dose 6440 cGy. Adjuvant hormonal therapy with anastrozole 1 mg daily began on 07/11/2017. Her baseline bone density was normal with T score -0.3 the lumbar spine, but is 0.7 in the left hip, and -0.9 in the right hip. As of her follow-up visit in October 2017 she was complaining of hot flashes with the anastrozole, but she was otherwise tolerating it well. She continued treatment with addition of low-dose megestrol for the hot flashes. She opted to stop treatment in the latter part of March due to worsening side effects, which included more severe hot flashes, fatigue, and general inability to function. Her symptoms had subsequently improved, and in April 2018 she began further adjuvant hormonal therapy with exemestane 25 mg daily. She continued to have significant hot flashes and she also had some fatigue with the exemestane, but as of her follow-up visit in August 2018 she had been able to tolerate it with acceptable toxicity. However, as of her follow-up visit on 11/09/2018 the exemestane was put on hold due to increasing side effects including severe fatigue, musculoskeletal pain, and difficulty maneuvering. As of her follow-up visit on 12/13/2018 she was feeling better, and she then began further adjuvant hormonal therapy with tamoxifen 20 mg daily. At her follow-up visit on 03/20/2019 she had multiple complaints including fatigue, headache, and dysequilibrium, among others. Her tamoxifen was put on hold. At that time she also had stopped meloxicam. She had subsequently tried restarting the tamoxifen, but she continued to have multiple side effects, and the most significant of which was severe hot flashes. She had ongoing complaints of fatigue and shortness of breath following completion of her adjuvant chemotherapy. She had very poor tolerance for multiple adjuvant hormonal therapies, including anastrozole, exemestane, and tamoxifen. She has been off treatment following her visit in March 2019. Thus far there has been no evidence of recurrence of the breast cancer. Plan: She will continue on observation/expectant management for the breast cancer. She will be given a refill on her fluconazole prescription. She will be scheduled for a follow-up visit in 6 months. Signed By: Karri Pratt M.D. <<Signature on File>>
== END 2020-03-20 13:52 | disposition home or self-care (01) ==
LOC: ONCMED 13:53
PROVIDERS: PCP Family Medicine; Visit Provider Internal Medicine Medical Oncology
DX: Z08 Encounter for follow-up examination after completed treatment for malignant neoplasm (principal); Z85.3 Personal history of malignant neoplasm of breast; B37.9 Candidiasis, unspecified; E11.9 Type 2 diabetes mellitus without complications; E78.5 Hyperlipidemia, unspecified; I10 Essential (primary) hypertension; K21.9 Gastro-esophageal reflux disease without esophagitis; M19.90 Unspecified osteoarthritis, unspecified site; F41.9 Anxiety disorder, unspecified; Z92.23 Personal history of estrogen therapy; Z92.3 Personal history of irradiation; Z92.21 Personal history of antineoplastic chemotherapy
CPT/HCPCS: 36415; 80053; 83036; 85025; G0463

== ENCOUNTER 2020-10-10 09:09 | Outpatient (CLI) | payer MEDICARE, SELFPAY ==
--- NOTE | 2020-10-10 09:16 | MM_ITS ---
WS: [id number] Bilateral diagnostic digital mammogram, 10/10/2020 Clinical Data: HX OF BREAST CA Comparison: 10/09/2019, 07/14/2018, 05/22/2018, 05/12/2018, 12/15/2016, 11/24/2016, 04/12/2007, 02/04/2006. Findings: The breasts show heterogeneous density. There are scattered benign and coarse calcifications througho ut both breasts. In the right breast on the CC view there is a 1.0 cm density with irregular borders which was not pre sent before. This density is not seen on the MLO or the ML views. The left breast shows skin thickening and post therapeutic changes in the central portion. There are vascular calcifications seen in the left breast. MM/[place] [id number] Impression: 1. New density in lateral aspect of the right breast seen on the cc view and re commend compression view in the CC projection along with right breast ultrasoun d of the lateral aspect of the right breast. 2. Post therapeutic changes of the left breast unchanged. BIRADS: 0-Incomplete: Need additional imaging evaluation FOLLOW UP: See Report The CAD odd piece checker was used.
== END 2020-10-10 09:10 | disposition home or self-care (01) ==
LOC: RADSHAW 09:14
PROVIDERS: PCP Family Medicine; Visit Provider Internal Medicine Medical Oncology
DX: Z85.3 Personal history of malignant neoplasm of breast (principal)
CPT/HCPCS: 77066

== ENCOUNTER 2020-10-17 14:52 | Outpatient (CLI) | payer MEDICARE, SELFPAY ==
--- NOTE | 2020-10-17 14:59 | MM_ITS ---
WS: [id number] Right breast diagnostic digital mammogram, 10/17/2020 Clinical Data: ABNORMAL MAMMOGRAM;HX BREAST CA Comparison: 10/10/2020, 10/09/2019. Findings: Compression CC spot of the lateral aspect of the right breast shows a 1 cm density. This density show s slightly irregular borders but no internal calcifications. There are diffuse calcifications in the lateral aspect of right breast. The patient has had a right breast biopsy. MM/[place] [id number] Impression: 1. 1 cm irregular density in the lateral aspect of the right breast. 2. Recommend right breast ultrasound. BIRADS: 4-Suspicious Finding-Biopsy Should Be Considered FOLLOW UP: See Report The CAD cloth checker was used.
--- NOTE | 2020-10-17 14:59 | US_ITS ---
WS: [id number] Right breast ultrasound, 10/17/2020 Clinical Data: ABNORMAL MAMMOGRAM;HX BREAST CA Comparison: None. Findings: Ultrasound of the right breast at the 10:00 position 2 cm from the nipple did not reveal a distinct a bnormality. Only normal breast tissue could be seen. The biopsy clip was possibly localized. US/US breast RT limited* [id number] Impression: 1. Negative for definite mass in the lateral aspect of the right breast. 2. Suspicious lesion on mammography and consider biopsy. BIRADS: 4-Suspicious Finding-Biopsy Should Be Considered FOLLOW UP: See Report
== END 2020-10-17 14:53 | disposition home or self-care (01) ==
LOC: RADSHAW 14:58
PROVIDERS: PCP Family Medicine; Visit Provider Internal Medicine Medical Oncology
DX: R92.8 Other abnormal and inconclusive findings on diagnostic imaging of breast (principal); Z85.3 Personal history of malignant neoplasm of breast
CPT/HCPCS: 76642; 77065

== ENCOUNTER 2020-10-28 12:35 | Outpatient (CLI) | payer MEDICARE, SELFPAY ==
--- NOTE | 2020-10-28 12:52 | MM_ITS ---
WS: [id number] STEREOTACTIC RIGHT BREAST BIOPSY WITH VACUUM ASSISTANCE HISTORY: ABNORMAL MAMMOGRAM COMPARISON: None available. Procedure, risks and complications were explained to the patient. Medications and prior radiographs a re reviewed. There were 2 areas in the upper-outer quadrant of the RIGHT breast for which further evaluation was r ecommended. This includes both soft tissue and calcifications. On the single vacuum biopsy that was p erformed in the upper outer quadrant both of these areas were included. These areas are adjacent to a prior biopsy site. Biopsy performed in the craniocaudad projection. The skin is cleansed with Chlora Prep and anesthetized with 1% buffered lidocaine. Deeper soft tissues anesthetized with a combination of lidocaine and epinephrine. Small dermatome is made. Needle advanced into the RIGHT breast. Stereo tactic imaging reveals appropriate positioning adjacent calcifications. Multiple vacuum-assisted core biopsies are obtained. No complications were encountered. Post biopsy specimen radiograph reveals numerous calcifications. Also the soft tissue mass that was d escribed was also biopsied at the same time. Biopsy clip is placed in the cavity. Post imaging reveals good placement of the clip. No migration. Pressures held for approximately 15 minutes. No bleeding. Dressing applied. Patient discharged with n o complications. There is no bleeding. With any questions or complications patient is to return. MM/[place] [id number] IMPRESSION: 1. Uncomplicated RIGHT breast stereotactic biopsy. This biopsy included both t he soft tissue abnormality and the moderately suspicious calcifications. 2. Specimen contains numerous calcifications. Pathology: Benign breast and fibrocystic changes with microcalcifications. Colu mnar cell changes and stromal sclerosis and usual ductal hyperplasia. No malign narinder. RECOMMENDATION: Diagnostic RIGHT mammogram 6 months.
--- NOTE | 2020-10-28 12:52 | MM_ITS ---
WS: [id number] STEREOTACTIC RIGHT BREAST BIOPSY WITH VACUUM ASSISTANCE HISTORY: ABNORMAL MAMMOGRAM COMPARISON: None available. Procedure, risks and complications were explained to the patient. Medications and prior radiographs a re reviewed. There were 2 areas in the upper-outer quadrant of the RIGHT breast for which further evaluation was r ecommended. This includes both soft tissue and calcifications. On the single vacuum biopsy that was p erformed in the upper outer quadrant both of these areas were included. These areas are adjacent to a prior biopsy site. Biopsy performed in the craniocaudad projection. The skin is cleansed with Chlora Prep and anesthetized with 1% buffered lidocaine. Deeper soft tissues anesthetized with a combination of lidocaine and epinephrine. Small dermatome is made. Needle advanced into the RIGHT breast. Stereo tactic imaging reveals appropriate positioning adjacent calcifications. Multiple vacuum-assisted core biopsies are obtained. No complications were encountered. Post biopsy specimen radiograph reveals numerous calcifications. Also the soft tissue mass that was d escribed was also biopsied at the same time. Biopsy clip is placed in the cavity. Post imaging reveals good placement of the clip. No migration. Pressures held for approximately 15 minutes. No bleeding. Dressing applied. Patient discharged with n o complications. There is no bleeding. With any questions or complications patient is to return. MM/MM surgical specimen RT IMPRESSION: 1. Uncomplicated RIGHT breast stereotactic biopsy. This biopsy included both t he soft tissue abnormality and the moderately suspicious calcifications. 2. Specimen contains numerous calcifications. Pathology: Benign breast and fibrocystic changes with microcalcifications. Colu mnar cell changes and stromal sclerosis and usual ductal hyperplasia. No malign narinder. RECOMMENDATION: Diagnostic RIGHT mammogram 6 months.
--- NOTE | 2020-10-28 12:52 | MM_ITS ---
WS: [id number] STEREOTACTIC RIGHT BREAST BIOPSY WITH VACUUM ASSISTANCE HISTORY: ABNORMAL MAMMOGRAM COMPARISON: None available. Procedure, risks and complications were explained to the patient. Medications and prior radiographs a re reviewed. There were 2 areas in the upper-outer quadrant of the RIGHT breast for which further evaluation was r ecommended. This includes both soft tissue and calcifications. On the single vacuum biopsy that was p erformed in the upper outer quadrant both of these areas were included. These areas are adjacent to a prior biopsy site. Biopsy performed in the craniocaudad projection. The skin is cleansed with Chlora Prep and anesthetized with 1% buffered lidocaine. Deeper soft tissues anesthetized with a combination of lidocaine and epinephrine. Small dermatome is made. Needle advanced into the RIGHT breast. Stereo tactic imaging reveals appropriate positioning adjacent calcifications. Multiple vacuum-assisted core biopsies are obtained. No complications were encountered. Post biopsy specimen radiograph reveals numerous calcifications. Also the soft tissue mass that was d escribed was also biopsied at the same time. Biopsy clip is placed in the cavity. Post imaging reveals good placement of the clip. No migration. Pressures held for approximately 15 minutes. No bleeding. Dressing applied. Patient discharged with n o complications. There is no bleeding. With any questions or complications patient is to return. MM/[place] vac assist [id number] IMPRESSION: 1. Uncomplicated RIGHT breast stereotactic biopsy. This biopsy included both t he soft tissue abnormality and the moderately suspicious calcifications. 2. Specimen contains numerous calcifications. Pathology: Benign breast and fibrocystic changes with microcalcifications. Colu mnar cell changes and stromal sclerosis and usual ductal hyperplasia. No malign narinder. RECOMMENDATION: Diagnostic RIGHT mammogram 6 months.
== END 2020-10-28 12:36 | disposition home or self-care (01) ==
LOC: RADSHAW 12:36
PROVIDERS: PCP Family Medicine; Visit Provider Internal Medicine Medical Oncology
DX: R92.8 Other abnormal and inconclusive findings on diagnostic imaging of breast (principal); N62 Hypertrophy of breast; R92.1 Mammographic calcification found on diagnostic imaging of breast
CPT/HCPCS: 19081; 36415; 77065; 85610; 88305; J7050

== ENCOUNTER 2021-01-06 11:50 | Outpatient (CLI) | payer MEDICARE, SELFPAY ==
[2021-01-06 12:51] LABS: Basophils # 0.1 10^3/uL (0.0-0.1); Basophils % 0.7 %; Eosinophils # 0.3 10^3/uL (0.0-0.8); Eosinophils % 4.1 %; Hematocrit 37.2 % (37.0-47.0); Hemoglobin 12.2 g/dL (11.5-15.3); Lymphocytes # 1.9 10^3/uL (0.8-4.8); Lymphocytes % 25.3 %; Mean Corpuscular HGB Conc 32.8 g/dL (30.0-36.0); Mean Corpuscular Hemoglobin 28.8 pg (28.0-34.0); Mean Corpuscular Volume 87.7 fl (81-99); Mean Platelet Volume 11.2 fL (7.4-10.4); Monocytes # 0.5 10^3/uL (0.2-0.9); Monocytes % 6.3 %; Neutrophils # 4.76 10^3/uL (1.8-7.7); Neutrophils % 63.3 %; Nucleated Red Blood Cells % 0 %; Platelet Count 216 10^3/cmm (130-400); Red Blood Count 4.24 10^6/uL (4.1-5.3); White Blood Count 7.5 10^3/uL (4.0-10.0)
[2021-01-06 13:16] LABS: Alanine Aminotransferase 17 U/L (0-33); Albumin Level 4.2 g/dL (3.5-5.2); Alkaline Phosphatase 63 IU/L (35-105); Aspartate Amino Transferase 20 U/L (0-32); Blood Urea Nitrogen 14 mg/dL (8-23); Calcium 9.1 mg/dL (8.5-10.5); Carbon Dioxide 28 mmol/L (22-29); Chloride 101 mmol/L (98-107); Globulin 3.1 g/dL (1.3-4.6); Glucose 91 mg/dL (65-115); Osmolality Calculated 290 mOsm/kg (285-295); Sodium 140 mmol/L (136-145); Total Bilirubin 0.2 mg/dL (0.15-1.2); Total Protein 7.3 g/dL (6.6-8.7)
--- NOTE | 2021-01-06 14:46 | ONC FU_ITS ---
Dr. Pratt Patient Follow-Up Note Patient: Anika Gutierrez Unit #: [id number]: [id number] Dicatated By: Karri Pratt M.D.Date of Visit:Jan 06, 2021 Onc Med Follow-up/Prog Note Chief Complaint: Breast cancer. 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 She had presented with an abnormal screening mammogram on 11/24/2016, BI-RADS 0. Findings included a nodule in the left medial and slightly inferior anterior third breast. Left diagnostic mammogram and ultrasound on 12/15/2016 was BI-RADS 4A with suspicious appearing solid nodule at the 9:00 position of the left breast. It measured 5 x 6 x 6 mm by ultrasound. Ultrasound directed needle biopsy on 01/18/2017 showed grade 1 infiltrating ductal carcinoma. The breast prognostic profile showed ER positive at 70% and CO positive at 52%. The HER-2/vipul was nonamplified, 1+ by IHC and amplification ratio by FISH of 1.4 with 1.8 HER-2/vipul copies/cell. She underwent left breast lumpectomy with axillary sentinel lymph node biopsy on 02/02/2017. Pathology showed grade 1 infiltrating ductal carcinoma measuring 0.8 x 0.7 cm. There was DCIS within 2 mm of the inferior margin and within 4 mm of the posterior margin. The margins were free of infiltrating carcinoma. There was no involvement in 7 lymph nodes. She then had further evaluation with Oncotype DX. It showed a recurrence score of 32 corresponding to a 10 year risk of distant recurrence of 21% with adjuvant hormonal therapy alone. It was in the high risk range with estimated 30% benefit with addition of adjuvant chemotherapy. With those findings she was given chemotherapy with 4 cycles of cyclophosphamideTaxotere. Her treatment was complicated by neutropenia, requiring growth factor support beginning with cycle 2. She completed the 4th cycle on 05/24/2017. She was then given radiation to the left breast, which she completed on 08/23/2017 to a total dose of 6004 and 40 cGy. Adjuvant hormonal therapy with anastrozole 1 mg daily began in July 2017. Her baseline bone density was normal with T score -0.3 the lumbar spine, 0.7 in the left hip, and -0.9 in the right hip. As of her follow-up visit in October 2017 she was having significant hot flashes. She otherwise appeared to be tolerating the anastrozole pretty well. I did have her continue treatment, but with addition of megestrol 20 mg twice a day for the hot flashes. However, she did end up stopping the anastrozole just after [place] due to worsening side effects, mainly severe hot flashes and extreme fatigue. She then started further adjuvant hormonal therapy with exemestane 25 mg daily in April 2018. Her CT scans of the chest, abdomen, and pelvis on 08/01/2018 showed stable findings in the chest with mild changes of pulmonary fibrosis/chronic interstitial lung disease. There was no enlargement of previously described nodules. There was evidence of hepatomegaly and hepatic steatosis. There was no evidence of metastatic disease. She continued adjuvant hormonal therapy with exemestane 25 mg daily. At her follow-up visit on 11/09/2018 she had complained of severe fatigue and increased musculoskeletal pain. She also described having difficulty maneuvering. Given the severity of her symptoms, I had recommended that she stop the exemestane. In December 2018 she began further adjuvant hormonal therapy with tamoxifen 20 mg daily. As of her follow-up visit on 03/20/2019 the tamoxifen was put on hold due to multiple complaints including headache, dysequilibrium, and fatigue, among others. Further evaluation with brain MRI on 05/21/2019 showed no evidence of metastatic disease. She then restarted tamoxifen, but she continued to have side effects, and she did stop taking it again. She was then followed on expectant management. Her other medical illnesses include hypertension, dyslipidemia, type II diabetes, GERD, degenerative arthritis, and chronic anxiety. She also has a history of superficial bladder cancer for which he has undergone TURBT and intravesical BCG therapy. She has a history of smoking 1 pack of cigarettes daily for 20 years. She quit smoking in 1982. INTERIM HISTORY: Repeat chest CT in March 2020 showed stable mild chronic emphysematous changes. Multiple noncalcified subcentimeter pulmonary nodules were unchanged. A fibrotic appearing opacity in the right lower lobe anteriorly along the diaphragm appeared more prominent measuring 6 mm. Follow-up was recommended. There is no mediastinal or hilar lymphadenopathy. She appeared stable clinically, and she continued expectant management for the breast cancer. She is seen for a follow-up visit. She continues to complain that she is fighting fatigue. She is caring for her disabled and she is doing all of her housework. ECOG score is 1. She has good appetite. She has not had fever. She still has some hot flashes, but overall that is much better now. She has sinus drainage and nonproductive cough. She has some shortness of breath, though lately it has not been as bad. She has not had chest pain. She has no GI or complaints. She has significant arthritis pain in her left knee and in both shoulders, the right worse than the left. She occasionally has headache. She has ongoing problems with balance. She has some numbness in her hands. Medications: AmLODIPine Besylate 1 Tablet (of 5 mg) Tablet Oral daily, Atorvastatin Calcium 1 Tablet (of 40 mg) Oral daily, B-6 1 (50 mg) Tablet Oral b.i.d., CeleXA 1 Tablet (of 20 mg) Oral daily, Flax Seed Oil 1 Capsule (of 1000 mg) Oral b.i.d., HydroCHLOROthiazide 1 Tablet (of 25 mg) Oral daily, Imodium A-D 1 Tablet (of 2 mg) Oral PRN, Lisinopril 1 (40 mg) Tablet Oral daily, MetFORMIN HCl 1 Tablet (of 850 mg) Oral b.i.d., Metoprolol Tartrate 1 Tablet (of 75 mg) Oral b.i.d., Naproxen 1 Tablet (of 500 mg) Tablet Oral PRN, PriLOSEC OTC 1 (20 mg) Tablet, enteric coated Oral daily, Vitamin B12 1 Tablet Oral daily, Vitamin D 1 (1000 Units) Tablet Oral daily Allergies: Iodine contrast dye and Percocet. Vital Signs: Weight is 185 pounds. Blood pressure 146/64, pulse 73, respirations 18, temp 97.4 degrees, and oxygen saturation 96%. Physical Examination: Constitutional - She looks pretty good generally, Eyes - Sclerae nonicteric. Conjunctivae clear, ENMT - No lesions noted in the oral cavity, Hematologic/Lymphatic - No cervical, clavicular, or axillary adenopathy, Respiratory - Lungs are clear with good air movement bilaterally, Cardiovascular - Heart rhythm is regular. There is a II/ systolic murmur. There is no gallop or rub noted, Abdomen - Soft. Liver and spleen are not enlarged. There is no abdominal mass or ascites noted and there is no inguinal adenopathy, Extremities - No edema. Dorsalis pedis pulses are palpable bilaterally, Integumentary - There is a very small and slightly raised erythematous nodule in the superior aspect of the right breast laterally, Neurologic - No focal neurologic deficits noted. Lab/Imaging: Test performed on Jan 06, 2021 12:10 Sodium 140 mmol/L Potassium 4.0 mmol/L Chloride 101 mmol/L CO2 28 mmol/L Anion Gap 15.0 BUN 14 mg/dL Creatinine 0.4 mg/dL Cr Clearance (Est) 163.4500 mL/min Glucose 91 mg/dL Osmolality - Calculated 290 mOsm/kg Calcium 9.1 mg/dL Protein, Total 7.3 g/dL Albumin 4.2 g/dL Globulin 3.1 g/dL Bilirubin, Total 0.2 mg/dL ALT (SGPT) 17 U/L AST (SGOT) 20 U/L Alkaline Phosphatase 63 IU/L WBC 7.5 10 3/uL RBC 4.24 10 6/uL HGB 12.2 g/dL HCT 37.2 % MCV 87.7 fl MCH 28.8 pg MCHC 32.8 g/dL RDW 14.0 % Platelet Count 216 10 3/cmm MPV 11.2 fL Neutrophils 4.76 10 3/uL Lymphocytes 1.9 10 3/uL Monocytes 0.5 10 3/uL Eosinophils 0.3 10 3/uL Basophils 0.1 10 3/uL Neutrophil % 63.3 % Lymphocyte % 25.3 % Monocyte % 6.3 % Eosinophil % 4.1 % Basophils % 0.7 % NRBC % 0 % Problem List: 1. Patient with grade 1 infiltrating ductal carcinoma of the left breast, stage IA (T1b, N0, M0), ER/CO positive and HER-2/vipul nonamplified. She had high risk by Oncotype DX with a recurrence score of 32. 2. She has history of superficial bladder cancer for which she has undergone TURBT and intravesical BCG. 3. Hypertension. 4. Dyslipidemia. 5. Type II diabetes. 6. GERD. 7. Degenerative arthritis. 8. Chronic anxiety. Problems Addressed with this Encounter and Plan: Patient with grade 1 infiltrating ductal carcinoma of the left breast, stage IA (T1b, N0, M0), ER/CO positive and HER-2/vipul nonamplified. She underwent left breast lumpectomy with axillary sentinel lymph node biopsy on 02/02/2017. She was found to be high risk by Oncotype DX with a recurrence score of 32. Based on the high risk Oncotype DX score, I recommended adjuvant chemotherapy with cyclophosphamide/Taxotere. She completed 4 cycles of treatment from 03/22/2017 thru 05/24/2017. The treatment was complicated by moderately severe neutropenia and fatigue. Overall she tolerated it well. She then underwent radiation to the left breast, completed on 08/23/2017 to a total dose 6440 cGy. She began adjuvant endocrine therapy in July 2017. She had poor tolerance for both anastrozole and exemestane. She had began a trial of further adjuvant hormonal therapy with tamoxifen in December 2018, that she also tolerated poorly. She ultimately stopped treatment in March 2019, and she was then followed on expectant management. During follow-up she has continued to complain of fatigue and she reports having difficulty with balance. She has a significant arthritis pain in her left knee and both shoulders. She has had orthopedic follow-up with Dr. Hernández in [place]. Overall, her clinical status at this point appears stable. She does have a new, small erythematous skin lesion in the upper right breast, and that will need to be monitored. There has otherwise been no evidence of recurrence of her breast cancer. She continues expectant management. I will see her again in 3 months or sooner if the skin lesion is enlarging. Signed By: Karri Pratt M.D. <<Signature on File>>
[2021-01-06 15:27] LABS: Thyroid Stimulating Hormone 3.09 uIU/mL (0.27-4.20)
[2021-01-06 15:44] LABS: Estmated Average Glucose 143; Hemoglobin A1C 6.6 % (4.0-6.0)
== END 2021-01-06 11:51 | disposition home or self-care (01) ==
LOC: ONCMED 11:54
PROVIDERS: PCP Family Medicine; Visit Provider Internal Medicine Medical Oncology
DX: C50.812 Malignant neoplasm of overlapping sites of left female breast (principal); Z17.0 Estrogen receptor positive status [ER+]; L98.9 Disorder of the skin and subcutaneous tissue, unspecified; M19.012 Primary osteoarthritis, left shoulder; M19.011 Primary osteoarthritis, right shoulder; M17.12 Unilateral primary osteoarthritis, left knee; Z85.51 Personal history of malignant neoplasm of bladder; I10 Essential (primary) hypertension; E11.9 Type 2 diabetes mellitus without complications; E78.5 Hyperlipidemia, unspecified; K21.9 Gastro-esophageal reflux disease without esophagitis; Z92.3 Personal history of irradiation; Z90.12 Acquired absence of left breast and nipple; Z79.899 Other long term (current) drug therapy; Z79.84 Long term (current) use of oral hypoglycemic drugs
CPT/HCPCS: 36415; 80053; 83036; 84443; 85025; 99214

== ENCOUNTER 2021-06-02 10:55 | Outpatient (CLI) | payer MEDICARE, SELFPAY ==
--- NOTE | 2021-06-05 07:21 | ONC FU_ITS ---
Dr. Pratt Patient Follow-Up Note Patient: Anika Gutierrez Unit #: [id number]: 1945 Dicatated By: Karri Pratt M.D.Date of Visit:Jun 02, 2021 Onc Med Follow-up/Prog Note Chief Complaint: Breast cancer. History of Present Illness: This is a 76 year-old woman with grade 1 infiltrating ductal carcinoma of the left breast, stage IA (T1b, N0, M0), ER/NM positive and HER-2/vipul nonamplified. She had presented with an abnormal screening mammogram on 11/24/2016, BI-RADS 0. Findings included a nodule in the left medial and slightly inferior anterior third breast. Left diagnostic mammogram and ultrasound on 12/15/2016 was BI-RADS 4A with suspicious appearing solid nodule at the 9:00 position of the left breast. It measured 5 x 6 x 6 mm by ultrasound. Ultrasound directed needle biopsy on 01/18/2017 showed grade 1 infiltrating ductal carcinoma. The breast prognostic profile showed ER positive at 70% and NM positive at 52%. The HER-2/vipul was nonamplified, 1+ by IHC and amplification ratio by FISH of 1.4 with 1.8 HER-2/vipul copies/cell. She underwent left breast lumpectomy with axillary sentinel lymph node biopsy on 02/02/2017. Pathology showed grade 1 infiltrating ductal carcinoma measuring 0.8 x 0.7 cm. There was DCIS within 2 mm of the inferior margin and within 4 mm of the posterior margin. The margins were free of infiltrating carcinoma. There was no involvement in 7 lymph nodes. She then had further evaluation with Oncotype DX. It showed a recurrence score of 32 corresponding to a 10 year risk of distant recurrence of 21% with adjuvant hormonal therapy alone. It was in the high risk range with estimated 30% benefit with addition of adjuvant chemotherapy. With those findings she was given chemotherapy with 4 cycles of cyclophosphamideTaxotere. Her treatment was complicated by neutropenia, requiring growth factor support beginning with cycle 2. She completed the 4th cycle on 05/24/2017. She was then given radiation to the left breast, which she completed on 08/23/2017 to a total dose of 6004 and 40 cGy. Adjuvant hormonal therapy with anastrozole 1 mg daily began in July 2017. Her baseline bone density was normal with T score -0.3 the lumbar spine, 0.7 in the left hip, and -0.9 in the right hip. As of her follow-up visit in October 2017 she was having significant hot flashes. She otherwise appeared to be tolerating the anastrozole pretty well. I did have her continue treatment, but with addition of megestrol 20 mg twice a day for the hot flashes. However, she did end up stopping the anastrozole just after [place] due to worsening side effects, mainly severe hot flashes and extreme fatigue. She then started further adjuvant hormonal therapy with exemestane 25 mg daily in April 2018. Her CT scans of the chest, abdomen, and pelvis on 08/01/2018 showed stable findings in the chest with mild changes of pulmonary fibrosis/chronic interstitial lung disease. There was no enlargement of previously described nodules. There was evidence of hepatomegaly and hepatic steatosis. There was no evidence of metastatic disease. She continued adjuvant hormonal therapy with exemestane 25 mg daily. At her follow-up visit on 11/09/2018 she had complained of severe fatigue and increased musculoskeletal pain. She also described having difficulty maneuvering. Given the severity of her symptoms, I had recommended that she stop the exemestane. In December 2018 she began further adjuvant hormonal therapy with tamoxifen 20 mg daily. As of her follow-up visit on 03/20/2019 the tamoxifen was put on hold due to multiple complaints including headache, dysequilibrium, and fatigue, among others. Further evaluation with brain MRI on 05/21/2019 showed no evidence of metastatic disease. She then restarted tamoxifen, but she continued to have side effects, and she did stop taking it again. She was then followed on expectantly. Repeat chest CT in March 2020 showed stable mild chronic emphysematous changes. Multiple noncalcified subcentimeter pulmonary nodules were unchanged. A fibrotic appearing opacity in the right lower lobe anteriorly along the diaphragm appeared more prominent measuring 6 mm. Follow-up was recommended. There was no mediastinal or hilar lymphadenopathy. She appeared stable clinically, and she continued expectant management for the breast cancer. Her other medical illnesses include hypertension, dyslipidemia, type II diabetes, GERD, degenerative arthritis, and chronic anxiety. She also has a history of superficial bladder cancer for which he has undergone TURBT and intravesical BCG therapy. She has a history of smoking 1 pack of cigarettes daily for 20 years. She quit smoking in 1982. INTERIM HISTORY: Her surveillance mammogram in October 2020 showed a new density in the lateral aspect of the right breast. Ultrasound was unrevealing, but the lesion was still evident on additional mammographic views. Stereotactic biopsy of the right breast on 10/28/2020 showed benign breast and fibrocystic changes with microcalcifications. There was no evidence of malignancy, and there was no atypia and no dysplastic changes identified. She is seen for a follow-up visit. She has been feeling pretty good generally, though she says her energy is not great. She is able to do light work. Her appetite is good. She has not had fever. She still has some hot flashes, but she says they are better now than they used to be. She has sinus drainage and some cough, and she has some shortness of breath with activity. She does not complain of chest pain. She has no GI complaints. Bladder function is somewhat variable, but she is prone to urgency/incontinence. She has been having more arthritis pain, particularly in the right shoulder and left knee. She says both need replacements. She does not complain of headache. She does tend to get a little dizzy. She has a little numbness in her hands and on the bottoms of her feet. Medications: AmLODIPine Besylate 1 Tablet (of 5 mg) Tablet Oral daily, Atorvastatin Calcium 1 Tablet (of 40 mg) Oral daily, B-6 1 (50 mg) Tablet Oral b.i.d., CeleXA 1 Tablet (of 20 mg) Oral daily, Flax Seed Oil 1 Capsule (of 1000 mg) Oral b.i.d., HydroCHLOROthiazide 1 Tablet (of 25 mg) Oral daily, Imodium A-D 1 Tablet (of 2 mg) Oral PRN, Lisinopril 1 (40 mg) Tablet Oral daily, MetFORMIN HCl 1 Tablet (of 850 mg) Oral b.i.d., Metoprolol Tartrate 1 Tablet (of 75 mg) Oral b.i.d., Naproxen 1 Tablet (of 500 mg) Tablet Oral PRN, PriLOSEC OTC 1 (20 mg) Tablet, enteric coated Oral daily, Vitamin B12 1 Tablet Oral daily, Vitamin D 1 (1000 Units) Tablet Oral daily Allergies: Iodine contrast dye and Percocet. Vital Signs: Performed on Jun 02, 2021 11:34 Height - 63.00 in Weight - 184.4 lbs (LOW) BSA - 1.87 sq.m BMI - 32.67 (HIGH) Temperature - 97.5 F (LOW) Pulse - 75 /min Respiration - 16 /min BP - 158/72 mm(hg) (HIGH) O2 Sat - 93 % (LOW) Pain - 0 Fatigue - 5 Physical Examination: Constitutional - She looks pretty good generally, Eyes - Sclerae nonicteric. Conjunctivae clear, ENMT - No lesions noted in the oral cavity, Hematologic/Lymphatic - No cervical or clavicular adenopathy, Respiratory - Lungs are clear with good air movement bilaterally, Cardiovascular - Heart rhythm is regular. There is a II/ systolic murmur. There is no gallop or rub noted, Breasts - There is a focal area of erythema in the superior/lateral right breast which is now just faintly visible. There is no mass palpable. There is no axillary adenopathy, Abdomen - Soft. Liver and spleen are not enlarged. There is no abdominal mass or ascites noted and there is no inguinal adenopathy, Extremities - No edema, Neurologic - No focal neurologic deficits noted. Problem List: 1. Patient with grade 1 infiltrating ductal carcinoma of the left breast, stage IA (T1b, N0, M0), ER/NM positive and HER-2/vipul nonamplified. She had high risk by Oncotype DX with a recurrence score of 32. 2. She has history of superficial bladder cancer for which she has undergone TURBT and intravesical BCG. 3. Hypertension. 4. Dyslipidemia. 5. Type II diabetes. 6. GERD. 7. Degenerative arthritis. 8. Chronic anxiety. Problems Addressed with this Encounter and Plan: Patient with grade 1 infiltrating ductal carcinoma of the left breast, stage IA (T1b, N0, M0), ER/NM positive and HER-2/vipul nonamplified. She underwent left breast lumpectomy with axillary sentinel lymph node biopsy on 02/02/2017. She was found to be high risk by Oncotype DX with a recurrence score of 32. Based on the high risk Oncotype DX score, I recommended adjuvant chemotherapy with cyclophosphamide/Taxotere. She completed 4 cycles of treatment from 03/22/2017 thru 05/24/2017. The treatment was complicated by moderately severe neutropenia and fatigue. Overall she tolerated it well. She then underwent radiation to the left breast, completed on 08/23/2017 to a total dose 6440 cGy. She began adjuvant endocrine therapy in July 2017. She had poor tolerance for both anastrozole and exemestane. She had began a trial of further adjuvant hormonal therapy with tamoxifen in December 2018, that she also tolerated poorly. She ultimately stopped treatment in March 2019, and she was then followed on expectant management. During follow-up she has continued to complain of fatigue and she has had difficulty with balance. She has a significant arthritis pain in her left knee and right shoulders. Overall, her clinical status has been stable with no evidence of recurrence of the breast cancer. She does need follow-up for the abnormality reported on her chest CT in March 2020. She otherwise just continues on expectant management. I will see her again in 6 months. Signed By: Karri Pratt M.D. <<Signature on File>>
== END 2021-06-02 10:56 | disposition home or self-care (01) ==
LOC: ONCMED 11:01
PROVIDERS: PCP Family Medicine; Visit Provider Internal Medicine Medical Oncology
DX: Z85.3 Personal history of malignant neoplasm of breast (principal); Z85.51 Personal history of malignant neoplasm of bladder; I10 Essential (primary) hypertension; E78.5 Hyperlipidemia, unspecified; E11.9 Type 2 diabetes mellitus without complications; K21.9 Gastro-esophageal reflux disease without esophagitis; F41.9 Anxiety disorder, unspecified; Z79.899 Other long term (current) drug therapy
CPT/HCPCS: 99214

== ENCOUNTER 2021-07-22 11:51 | Outpatient (CLI) | payer MEDICARE, SELFPAY ==
--- NOTE | 2021-07-22 12:12 | CT_ITS ---
WS: [id number] CT CHEST WITHOUT INTRAVENOUS CONTRAST HISTORY: BREAST CANCER TECHNIQUE: Contiguous 5 mm axial imaging performed on the thorax. Coronal and sagittal reformats are submitted. All CT scans at [facility] use at least one of these dose optimization techniques: automated exposure control; mA and/or kV adjustment per patient size (includes targeted exams where dose is matched to clinical indication); or iterative reconstruction. CONTRAST: None DLP: 702.46 mGy.cm COMPARISON: 09/21/2019, 08/01/2018 Lungs and central airway: There are several small bilateral, subcentimeter pulmonary nodules. A few o f these are more obvious than on the prior examination and there couple new subcentimeter nodules at the RIGHT lung base. Area of pleural thickening anteriorly in the RIGHT upper lobe. The fibrotic nodu le seen on the prior CT is less apparent at the RIGHT lung base. Pleura: Normal. No pleural effusion. Heart and pericardium: Moderately enlarged heart. Mediastinum and barby: No mediastinum or hilar adenopathy. Vessels: Atherosclerosis thoracic aorta. Normal size pulmonary artery. Chest wall and lower neck: No soft tissue masses. Upper abdomen: Several low-attenuation nodules within the liver. These were present on the prior exam ination. No adrenal mass. Exophytic nodule from the posterior superior LEFT kidney is stable and 9 mm . Osseous structures: Advanced joint space narrowing at the shoulder joints and osteophytic ridging. CT/CT chest wo con [id number] IMPRESSION: 1. Subcentimeter pulmonary nodules throughout the lungs. There are a few very small nodules which may be postinflammatory. Majority of the nodules have remai yvonne stable since at least 09/21/2019. 2. No adenopathy. 3. Low-attenuation nodules in the liver are reidentified. These were noted be cysts on a prior contrast examination. 4. No adenopathy.
== END 2021-07-22 11:52 | disposition home or self-care (01) ==
LOC: RAD 11:58
PROVIDERS: PCP Family Medicine
DX: C50.312 Malignant neoplasm of lower-inner quadrant of left female breast (principal); R91.8 Other nonspecific abnormal finding of lung field
CPT/HCPCS: 71250

== ENCOUNTER 2021-10-07 11:33 | Outpatient (CLI) | payer MEDICARE, SELFPAY ==
--- NOTE | 2021-10-07 11:44 | MM_ITS ---
WS: [id number] DIAGNOSTIC BILATERAL DIGITAL BREAST TOMOSYNTHESIS MAMMOGRAPHY WITH CAD HISTORY: HX OF BREAST CA COMPARISON: 10/28/2020, 10/10/2020. 10/09/2019 and 05/22/2018 TECHNIQUE: Bilateral craniocaudad, mediolateral oblique, and mediolateral views are submitted with to mosynthesis and SM. Magnification views RIGHT CC and MLO. Computer aided detection utilized. Breast composition: The breasts are heterogeneously dense, which may obscure small masses. There are numerous calcifications throughout both breasts. Focal area of architectural distortion in the centra l LEFT breast at a prior lumpectomy site. Biopsy clips in the RIGHT breast. There are extensive calc ifications throughout each breast but greatest in the RIGHT breast. The calcifications are difficult to characterize due to their extent. As compared to prior studies no obvious progression. Some of the se RIGHT breast calcifications were biopsied on 10/28/2020. Very slight increase in number. No distort ion or soft tissue. MM/[place] [id number] IMPRESSION: BI-RADS: 2-Benign FOLLOW UP: 1 Year Follow-up
== END 2021-10-07 11:34 | disposition home or self-care (01) ==
PROVIDERS: PCP Family Medicine; Visit Provider Internal Medicine Medical Oncology
DX: Z85.3 Personal history of malignant neoplasm of breast (principal)
CPT/HCPCS: 77062

== ENCOUNTER 2021-11-11 12:25 | Oncology outpatient (recurring) (ONCR) | payer MEDICARE, SELFPAY ==
[2021-11-11 13:36] LABS: Alanine Aminotransferase 21 U/L (0-33); Albumin Level 4.3 g/dL (3.5-5.2); Alkaline Phosphatase 59 IU/L (35-105); Anion Gap 15.9 (5-19); Aspartate Amino Transferase 23 U/L (0-32); Blood Urea Nitrogen 17 mg/dL (8-23); Calcium 9.4 mg/dL (8.5-10.5); Carbon Dioxide 28 mmol/L (22-29); Chloride 100 mmol/L (98-107); Globulin 2.7 g/dL (1.3-4.6); Glucose 130 mg/dL (65-115); Osmolality Calculated 293 mOsm/kg (285-295); Potassium 3.9 mmol/L (3.5-5.1); Sodium 140 mmol/L (136-145); Total Bilirubin 0.3 mg/dL (0.15-1.2)
[2021-11-11 13:38] LABS: Basophils % 0.6 %; Eosinophils # 0.2 10^3/uL (0.0-0.8); Eosinophils % 3.5 %; Hematocrit 35.3 % (37.0-47.0); Hemoglobin 11.4 g/dL (11.5-15.3); Lymphocytes # 1.7 10^3/uL (0.8-4.8); Lymphocytes % 26.7 %; Mean Corpuscular HGB Conc 32.3 g/dL (30.0-36.0); Mean Corpuscular Hemoglobin 28.9 pg (28.0-34.0); Mean Corpuscular Volume 89.4 fl (81-99); Mean Platelet Volume 11.2 fL (7.4-10.4); Monocytes # 0.4 10^3/uL (0.2-0.9); Monocytes % 5.6 %; Neutrophils # 3.99 10^3/uL (1.8-7.7); Neutrophils % 63.4 %; Nucleated Red Blood Cells % 0 %; Platelet Count 185 10^3/cmm (130-400); Red Blood Count 3.95 10^6/uL (4.1-5.3); Red Cell Distribution Width 13.8 % (12.1-15.1); White Blood Count 6.3 10^3/uL (4.0-10.0)
[2021-11-11 15:24] LABS: Ferritin 36 ng/mL (15-150); Iron 64 ug/dL (37-145); Percent Saturation 20.3 % (20-50); Total Iron Binding Capacity 315 mcg/dl; Unsaturated Iron Binding 251 ug/dL (112-347)
== END 2021-12-09 23:59 | disposition home or self-care (01) ==
PROVIDERS: Nurse Practitioner; PCP Family Medicine; Visit Provider Internal Medicine Medical Oncology
DX: Z08 Encounter for follow-up examination after completed treatment for malignant neoplasm (principal); Z85.3 Personal history of malignant neoplasm of breast; D50.9 Iron deficiency anemia, unspecified; Z79.899 Other long term (current) drug therapy; Z92.21 Personal history of antineoplastic chemotherapy; Z92.3 Personal history of irradiation; Z87.891 Personal history of nicotine dependence
CPT/HCPCS: 36415; 80053; 82728; 83540; 83550; 85025; 99214

== ENCOUNTER → 2022-02-09 13:33 | Outpatient (BNVA) | payer MEDICARE, SELFPAY | PROVIDERS: PCP Family Medicine; Visit Provider Family Medicine | DX: R30.0 Dysuria (principal); Z51.81 Encounter for therapeutic drug level monitoring; E11.9 Type 2 diabetes mellitus without complications; R01.1 Cardiac murmur, unspecified; E53.8 Deficiency of other specified B group vitamins; Z13.220 Encounter for screening for lipoid disorders; D50.8 Other iron deficiency anemias | CPT/HCPCS: 80053; 80061; 81000; 82607; 83036; 85025; 87086 ==

== ENCOUNTER 2022-02-18 08:35 | Outpatient (CLI) | payer MEDICARE, SELFPAY ==
--- NOTE | 2022-02-18 08:45 | USCV_ITS ---
Anika Gutierrez Age: 76 Gender: F : 1945 Exam Date: 02/18/2022 08:56 Ordering Phys: Pascual Avelar MD Technologist: William Butler Exam Location: [facility] [place] Indication: New systolic murmur BP: 128 / 74 HR: 64 Rhythm: Sinus Technical Quality: Adequate MEASUREMENTS (Male / Female) Normal Values 2D ECHO LV Diastolic Diameter PLAX 4.7 cm 4.2 - 5.9 / 3.9 - 5.3 cm LV Systolic Diameter PLAX 3.1 cm IVS Diastolic Thickness 0.9 cm 0.6 - 1.0 / 0.6 - 0.9 cm IVS Systolic Thickness 1.3 cm LVPW Diastolic Thickness 1.2 cm 0.6 - 1.0 / 0.6 - 0.9 cm LVPW Systolic Thickness 1.3 cm LVOT Diameter 2.0 cm LV Ejection Fraction 2D Teich 62.4 % LV Ejection Fraction MOD 2C 59.9 % LV Ejection Fraction 2C AL 62.5 % LA Diameter 3.7 cm LA Width 3.7 cm LA Height 4.4 cm RA Width 3.2 cm RA Height 4.9 cm Aorta at Sinotubular Diameter 2.0 cm IVC Diameter 1.8 cm M-MODE Aortic Annulus Diameter 2.7 cm LA Ao Ratio MM 1.5 MV E Point Septal Separation 0.6 cm DOPPLER AV Peak Velocity 182.0 cm/s LVOT Peak Velocity 78.0 cm/s AV Area Cont Eq vti 1.6 cm squared AV Area Cont Eq pk 1.4 cm squared MV Peak Velocity 161.0 cm/s MV Area PHT 3.9 cm squared Mitral E to A Ratio 1.1 MV E' Velocity 60.0 cm/s Mitral E to MV E' Ratio 12.9 Mitral E to LV E' Lateral Ratio 12.8 Mitral E to LV E' Septal Ratio 13.1 TR Peak Velocity 256.0 cm/s TR Peak Gradient 26.2 mmHg TR Mean Velocity 188.7 cm/s TR Mean Gradient 15.7 mmHg TR Velocity Time Integral 82.2 cm Right Atrial Pressure 3.0 mmHg Pulmonary Artery Systolic Pressu 29.2 mmHg PV Peak Velocity 94.0 cm/s RV Acceleration Time 0.2 s RV Ejection Time 0.4 s RV AcT/ET 0.5 FINDINGS Left Ventricle Normal left ventricular size and systolic function, EF 60 %. Mild left ventricular hypertrophy. No regional wall motion abnormalities. Grade III/IV diastolic dysfunction (restrictive filling pattern), severely elevated filling pressures. Right Ventricle The right ventricle is normal in size and function. Right Atrium The right atrium is normal in size. Left Atrium Mildly increased left atrial size. Mitral Valve Thickened mitral valve. Moderate mitral annular calcification. Aortic Valve Thickened aortic valve. Features of aortic valve sclerosis Tricuspid Valve Trace to mild tricuspid valve regurgitation. Pulmonic Valve Trace pulmonary valve regurgitation. Pericardium No pericardial effusion. Aorta Normal ascending aorta dimension. IVC The inferior vena cava appears normal. CONCLUSIONS Normal left ventricular size and systolic function, EF 60 %. Mild left ventricular hypertrophy. No regional wall motion abnormalities. Grade III/IV diastolic dysfunction (restrictive filling pattern), severely elevated filling pressures. Mildly increased left atrial size. Thickened mitral valve. Moderate mitral annular calcification. Features of aortic valve sclerosis. Trace to mild tricuspid valve regurgitation. Trace pulmonary valve regurgitation. There is no pericardial effusion. Pulmonary artery systolic pressure is within normal limits-29 mmHg There are no intracardiac masses. Compared to the study from 03/21/2017, LV diastolic dysfunction appears to be new Dr Ananya Kennedy MD FACC (Electronically Signed) Final Date: 18 February 2022 13:36 S
== END 2022-02-18 08:36 | disposition home or self-care (01) ==
PROVIDERS: PCP Family Medicine; Visit Provider Family Medicine
DX: R01.1 Cardiac murmur, unspecified (principal); I08.3 Combined rheumatic disorders of mitral, aortic and tricuspid valves
CPT/HCPCS: 93306

== ENCOUNTER 2022-05-17 12:11 | Oncology outpatient (recurring) (ONCR) | payer MEDICARE, SELFPAY ==
[2022-05-17 13:19] LABS: Basophils # 0.1 10^3/uL (0.0-0.1); Basophils % 0.8 %; Eosinophils # 0.2 10^3/uL (0.0-0.8); Eosinophils % 3.8 %; Hematocrit 38.7 % (37.0-47.0); Hemoglobin 12.4 g/dL (11.5-15.3); Lymphocytes # 1.9 10^3/uL (0.8-4.8); Mean Corpuscular Hemoglobin 28.7 pg (28.0-34.0); Mean Corpuscular Volume 89.6 fl (81-99); Mean Platelet Volume 10.9 fL (7.4-10.4); Monocytes # 0.5 10^3/uL (0.2-0.9); Monocytes % 7.2 %; Neutrophils # 3.78 10^3/uL (1.8-7.7); Nucleated Red Blood Cells % 0 %; Platelet Count 198 10^3/cmm (130-400); Red Blood Count 4.32 10^6/uL (4.1-5.3); Red Cell Distribution Width 13.2 % (12.1-15.1); White Blood Count 6.4 10^3/uL (4.0-10.0)
[2022-05-17 13:37] LABS: Alanine Aminotransferase 24 U/L (0-33); Albumin Level 4.5 g/dL (3.5-5.2); Alkaline Phosphatase 61 U/L (35-105); Anion Gap 11.8 (5-19); Aspartate Amino Transferase 24 U/L (0-32); Blood Urea Nitrogen 16 mg/dL (8-23); Calcium 9.7 mg/dL (8.5-10.5); Carbon Dioxide 29 mmol/L (22-29); Chloride 97 mmol/L (98-107); Globulin 2.8 g/dL (1.3-4.6); Glucose 115 mg/dL (65-115); Osmolality Calculated 280 mOsm/kg (285-295); Potassium 3.8 mmol/L (3.5-5.1); Sodium 134 mmol/L (136-145); Total Bilirubin 0.3 mg/dL (0.15-1.2); Total Protein 7.3 g/dL (6.6-8.7)
== END 2022-06-08 23:59 | disposition home or self-care (01) ==
PROVIDERS: PCP Family Medicine; Visit Provider Internal Medicine Medical Oncology
DX: Z08 Encounter for follow-up examination after completed treatment for malignant neoplasm (principal); Z85.3 Personal history of malignant neoplasm of breast; D50.9 Iron deficiency anemia, unspecified; Z79.899 Other long term (current) drug therapy; Z92.21 Personal history of antineoplastic chemotherapy; Z92.3 Personal history of irradiation; Z87.891 Personal history of nicotine dependence; Z78.0 Asymptomatic menopausal state
CPT/HCPCS: 36415; 80053; 85025; 99214

== ENCOUNTER 2022-05-21 14:01 | Outpatient (CLI) | payer MEDICARE, SELFPAY ==
--- NOTE | 2022-05-21 14:30 | XR_ITS ---
WS: [id number] SCREENING DEXA SCAN [employer] CLINICAL INFORMATION: post menopausal COMPARISON: 2018 FINDINGS: The L1-L4 bone mineral density measures 1.178 g/cm2. This corresponds to a T score score of 0.0 and Z score of 1.1. Left femoral neck bone mineral density measures 0.856 g/cm2. This corresponds to a T score of -1.2 an d Z score of 0.2. Right femoral neck bone mineral density measures 0.912 g/cm2. This corresponds to a T score -0.8of an d Z score of 0.7. Mean femoral neck bone mineral density measures 0.884 g/cm2. This corresponds to a T score of -1.0 an d Z score of 0.5. XR/XR DEXA axial skeleton* [id number] IMPRESSION: Normal bone mineralization lumbar spine. Osteopenia femoral necks. Patient's FRAX calculated 10 year probability for major osteoporotic fracture i s 24.7 % and osteoporotic hip fracture is 14.8%. Bone mineral density in the lumbar spine has increased 3.0% since 2018. Bone mineral density in the femoral necks decreased -2.6% since 2018.
== END 2022-05-21 14:02 | disposition home or self-care (01) ==
LOC: RAD 14:06
PROVIDERS: PCP Family Medicine; Visit Provider Nurse Practitioner Family
DX: Z78.0 Asymptomatic menopausal state (principal)
CPT/HCPCS: 77080

== ENCOUNTER 2022-06-03 20:00 | Outpatient (CLI) | payer MEDICARE, SELFPAY | END 2022-06-03 20:01 | disposition home or self-care (01) | LOC: SLEEP 06-04 04:00 | PROVIDERS: PCP Family Medicine; Visit Provider Family Medicine | DX: G47.10 Hypersomnia, unspecified (principal); R06.83 Snoring; R53.83 Other fatigue | CPT/HCPCS: 95810 ==

== ENCOUNTER 2022-10-28 14:21 | Outpatient (CLI) | payer MEDICARE, SELFPAY ==
--- NOTE | 2022-10-28 14:43 | MM_ITS ---
WS: [id number] DIAGNOSTIC BILATERAL DIGITAL BREAST TOMOSYNTHESIS MAMMOGRAPHY WITH CAD HISTORY: ANNUAL - HX BR CA COMPARISON: 10/07/2021, 10/28/2020, 10/10/2020 TECHNIQUE: Bilateral craniocaudad, mediolateral oblique, and mediolateral views are submitted with to mosynthesis and SM. Computer aided detection utilized. Breast composition: There are scattered areas of fibroglandular density. Numerous calcifications thro ughout both breasts including vascular calcifications. Prior lumpectomy site in the anterior LEFT michaela ast with mild retraction of the nipple. No interval change. Additional biopsy clip in the posterior R IGHT breast laterally. MM/[place] [id number] IMPRESSION: BI-RADS: 2-Benign FOLLOW UP: 1 Year Follow-up
== END 2022-10-28 14:22 | disposition home or self-care (01) ==
PROVIDERS: PCP Family Medicine; Visit Provider Nurse Practitioner Family
DX: Z85.3 Personal history of malignant neoplasm of breast (principal)
CPT/HCPCS: 77062; G0279

== ENCOUNTER 2022-11-15 11:01 | Oncology outpatient (recurring) (ONCR) | payer MEDICARE, SELFPAY ==
[2022-11-15 11:09] VITALS: BP 146/65; PULSE 66; RESP 16; TEMP 36.4; O2SAT 94
[2022-11-15 11:19] LABS: Basophils % 0.6 %; Eosinophils # 0.3 10^3/uL (0.0-0.8); Eosinophils % 4.6 %; Hematocrit 38.1 % (37.0-47.0); Hemoglobin 12.6 g/dL (11.5-15.3); Lymphocytes # 1.8 10^3/uL (0.8-4.8); Lymphocytes % 25.3 %; Mean Corpuscular HGB Conc 33.1 g/dL (30.0-36.0); Mean Corpuscular Hemoglobin 28.8 pg (28.0-34.0); Mean Corpuscular Volume 87.2 fl (81-99); Mean Platelet Volume 10.3 fL (7.4-10.4); Monocytes # 0.4 10^3/uL (0.2-0.9); Monocytes % 5.9 %; Neutrophils # 4.54 10^3/uL (1.8-7.7); Neutrophils % 63.3 %; Nucleated Red Blood Cells % 0 %; Platelet Count 201 10^3/cmm (130-400); Red Blood Count 4.37 10^6/uL (4.1-5.3); Red Cell Distribution Width 13.5 % (12.1-15.1); White Blood Count 7.2 10^3/uL (4.0-10.0)
[2022-11-15 11:45] LABS: Alanine Aminotransferase 25 U/L (0-33); Albumin Level 4.3 g/dL (3.5-5.2); Alkaline Phosphatase 58 U/L (35-105); Anion Gap 16.8 (5-19); Aspartate Amino Transferase 27 U/L (0-32); Blood Urea Nitrogen 17 mg/dL (8-23); Calcium 9.5 mg/dL (8.5-10.5); Carbon Dioxide 27 mmol/L (22-29); Chloride 100 mmol/L (98-107); Globulin 2.9 g/dL (1.3-4.6); Glucose 147 mg/dL (65-115); Osmolality Calculated 294 mOsm/kg (285-295); Potassium 3.8 mmol/L (3.5-5.1); Sodium 140 mmol/L (136-145); Total Bilirubin 0.4 mg/dL (0.15-1.2); Total Protein 7.2 g/dL (6.6-8.7)
== END 2022-12-09 23:59 | disposition home or self-care (01) ==
PROVIDERS: PCP Family Medicine; Visit Provider Internal Medicine Medical Oncology
DX: D50.8 Other iron deficiency anemias (principal); C50.312 Malignant neoplasm of lower-inner quadrant of left female breast; Z17.0 Estrogen receptor positive status [ER+]
CPT/HCPCS: 36415; 80053; 85025; 99214

== ENCOUNTER 2024-09-18 10:44 | Outpatient (CLI) | payer MEDICARE, SELFPAY ==
--- NOTE | 2024-09-18 11:00 | MM_ITS ---
WS: [id number] DIAGNOSTIC BILATERAL DIGITAL BREAST TOMOSYNTHESIS MAMMOGRAPHY WITH CAD HISTORY: History of breast cancer COMPARISON: 10/28/2022 and 10/07/2021 TECHNIQUE: Bilateral craniocaudad, mediolateral oblique, and mediolateral views are submitted with tomosynthesis and SM. Computer aided detection utilized. Breast composition: The breasts are heterogeneously dense, which may obscure small masses. Reidentified is the lumpectomy site anterior LEFT breast, retroareolar. Postoperative changes with dystrophic calcifications at the lumpectomy site. No mass identified. Numerous calcifications present within each breast. Some of these calcifications are coarse and benign. Other calcifications are stable. No new mass. MM/MM diag BI tomosynthesis [id number] IMPRESSION: BI-RADS: 2 - Benign FOLLOW UP: 1 Year Follow-up
== END 2024-09-18 10:45 | disposition home or self-care (01) ==
LOC: RAD 10:46
PROVIDERS: PCP Family Medicine; Visit Provider Family Medicine
DX: Z85.3 Personal history of malignant neoplasm of breast (principal); R92.333 Mammographic heterogeneous density, bilateral breasts; Z98.890 Other specified postprocedural states; R92.1 Mammographic calcification found on diagnostic imaging of breast
CPT/HCPCS: 77062; G0279

== ENCOUNTER → 2024-09-24 11:52 | Outpatient (BNVA) | payer MEDICARE, SELFPAY | PROVIDERS: PCP Family Medicine; Visit Provider Family Medicine | DX: Z00.00 Encounter for general adult medical examination without abnormal findings (principal); Z13.6 Encounter for screening for cardiovascular disorders; E53.8 Deficiency of other specified B group vitamins; E55.9 Vitamin D deficiency, unspecified; E11.9 Type 2 diabetes mellitus without complications; Z51.81 Encounter for therapeutic drug level monitoring | CPT/HCPCS: 80053; 80061; 82306; 82607; 83036; 85025 ==

== ENCOUNTER → 2024-10-17 07:05 | Outpatient (BNVA) | payer MEDICARE, SELFPAY | PROVIDERS: PCP Family Medicine; Visit Provider Family Medicine | DX: R30.0 Dysuria (principal) | CPT/HCPCS: 87086 ==